=== PATIENT | male | born 1965 | race Caucasian/White ===

== ENCOUNTER 2020-03-10 16:03 | Emergency (ER) | payer BC, OTHER ==
--- NOTE | 2020-03-10 17:33 | ED ---
General Adult HPI - General Chief complaint: Shortness of Breath Stated complaint: Covid Positive Time Seen by Provider: 03/10/20 16:49 Source: patient, RN notes reviewed Mode of arrival: ambulatory Limitations: no limitations - History of Present Illness Initial comments: 55-year-old male presents to the emergency room for a chief complaint of positive Covid test. Patient reports that he did have a fever last night. States he again had a fever today with a T-max of 102. Patient did take Motrin and Tylenol. Patient does have a mild cough. Minimal shortness of breath. No significant chest pain. Patient states that because of his fever his work wanted him to be rapid tested. Patient went to urgent care and had a chest x- ray done that showed Covid pneumonia as well as a positive rapid Covid. Urgent care wanted him to be evaluated.Patient has no other complaints at this time including shortness of breath, chest pain, abdominal pain, nausea or vomiting, headache, or visual changes. - Related Data Home Medications Medication Instructions Recorded Confirmed Naproxen [Naprosyn] 375 mg PO Q12HR 09/27/14 09/28/14 Vitamin D3(Dose Unknown) 1 tab PO DAILY 09/27/14 09/28/14 hydroCHLOROthiazide [Hydrodiuril] 25 mg PO DAILY 09/27/14 09/28/14 Fexofenadine/Pseudoephedrine 1 each PO DAILY 09/28/14 09/28/14 [Cheryle-D 24 Hour Tablet] Allergies Allergy/AdvReac Type Severity Reaction Status Date / Time No Known Allergies Allergy Verified 03/10/20 16:18 Review of Systems ROS Statement: Those systems with pertinent positive or pertinent negative responses have been documented in the HPI. ROS Other: All systems not noted in ROS Statement are negative. Past Medical History Past Medical History: Hyperlipidemia History of Any Multi-Drug Resistant Organisms: None Reported Past Surgical History: Hernia Repair, Orthopedic Surgery, Tonsillectomy Additional Past Surgical History / Comment(s): left knee surgery Past Anesthesia/Blood Transfusion Reactions: No Reported Reaction Past Psychological History: No Psychological Hx Reported Smoking Status: Never smoker Past Alcohol Use History: Occasional Past Drug Use History: None Reported - Past Family History Father Family Medical History: Cancer General Exam Limitations: no limitations General appearance: alert, in no apparent distress Head exam: Present: atraumatic, normocephalic, normal inspection Eye exam: Present: normal appearance, PERRL, EOMI. Absent: scleral icterus, conjunctival injection, periorbital swelling ENT exam: Present: normal exam, mucous membranes moist Neck exam: Present: normal inspection, full ROM. Absent: tenderness, meningismus, lymphadenopathy Respiratory exam: Present: normal lung sounds bilaterally. Absent: respiratory distress, wheezes, rhonchi, stridor Cardiovascular Exam: Present: regular rate, normal rhythm, normal heart sounds. Absent: systolic murmur, diastolic murmur, rubs, gallop, clicks GI/Abdominal exam: Present: soft, normal bowel sounds. Absent: distended, tenderness, guarding, rebound, rigid Neurological exam: Present: alert Course Vital Signs 03/10/20 03/10/20 16:14 17:04 Temperature 98.8 F Pulse Rate 72 Respiratory 18 20 Rate Blood Pressure 145/87 O2 Sat by Pulse 98 Oximetry EKG Findings - EKG Comments: EKG Findings:: Normal sinus rhythm, ventricular rate 78, LA interval 146, QTC 449 Medical Decision Making - Medical Decision Making Vitals are stable. Patient is 95-98% on room air. He is not in any respiratory distress. Denies feeling short of breath. EKG is unremarkable, normal sinus rhythm. CBC unremarkable. CMP shows minimal hypokalemia, replaced orally. Patient does have a CRP of 85.9 which is consistent with Covid. Chest x-ray shows a normal chest. At this time given that good oxygen saturation and well- appearing male patient will be discharged home. However I did discuss strict return parameters. Patient is agreeable to returning if he starts to feel short of breath or has any other worsening symptoms. He will otherwise follow up with his doctor. I discussed quarantine precautions. - Lab Data Result diagrams: 03/10/20 17:25 03/10/20 17:25 Lab Results 03/10/20 03/10/20 03/10/20 Range/Units 17:25 17:25 17:25 WBC 5.5 (3.8-10.6) k/uL RBC 4.54 (4.30-5.90) m/uL Hgb 12.8 L (13.0-17.5) gm/dL Hct 38.9 L (39.0-53.0) % MCV 85.8 (80.0-100.0) fL MCH 28.2 (25.0-35.0) pg MCHC 32.9 (31.0-37.0) g/dL RDW 14.1 (11.5-15.5) % Plt Count 195 (150-450) k/uL Neutrophils % 59 % Lymphocytes % 30 % Monocytes % 8 % Eosinophils % 0 % Basophils % 0 % Neutrophils # 3.3 (1.3-7.7) k/uL Lymphocytes # 1.7 (1.0-4.8) k/uL Monocytes # 0.4 (0-1.0) k/uL Eosinophils # 0.0 (0-0.7) k/uL Basophils # 0.0 (0-0.2) k/uL PT 9.9 (9.0-12.0) sec INR 0.9 (<1.2) APTT 27.3 (22.0-30.0) sec Sodium 132 L (137-145) mmol/L Potassium 3.2 L (3.5-5.1) mmol/L Chloride 95 L (98-107) mmol/L Carbon Dioxide 27 (22-30) mmol/L Anion Gap 10 mmol/L BUN 17 (9-20) mg/dL Creatinine 1.01 (0.66-1.25) mg/dL Est GFR (CKD-EPI)AfAm >90 (>60 ml/min/1.73 sqM) Est GFR (CKD-EPI)NonAf 85 (>60 ml/min/1.73 sqM) Glucose 121 H (74-99) mg/dL Plasma Lactic Acid Rhett (0.7-2.0) mmol/L Calcium 8.4 (8.4-10.2) mg/dL Magnesium 1.7 (1.6-2.3) mg/dL Total Bilirubin 0.8 (0.2-1.3) mg/dL AST 42 (17-59) U/L ALT 34 (4-49) U/L Alkaline Phosphatase 66 (38-126) U/L Lactate Dehydrogenase 625 H (313-618) U/L C-Reactive Protein 85.9 H (<10.0) mg/L Total Protein 6.8 (6.3-8.2) g/dL Albumin 4.0 (3.5-5.0) g/dL 10/01/20 Range/Units 17:25 WBC (3.8-10.6) k/uL RBC (4.30-5.90) m/uL Hgb (13.0-17.5) gm/dL Hct (39.0-53.0) % MCV (80.0-100.0) fL MCH (25.0-35.0) pg MCHC (31.0-37.0) g/dL RDW (11.5-15.5) % Plt Count (150-450) k/uL Neutrophils % % Lymphocytes % % Monocytes % % Eosinophils % % Basophils % % Neutrophils # (1.3-7.7) k/uL Lymphocytes # (1.0-4.8) k/uL Monocytes # (0-1.0) k/uL Eosinophils # (0-0.7) k/uL Basophils # (0-0.2) k/uL PT (9.0-12.0) sec INR (<1.2) APTT (22.0-30.0) sec Sodium (137-145) mmol/L Potassium (3.5-5.1) mmol/L Chloride (98-107) mmol/L Carbon Dioxide (22-30) mmol/L Anion Gap mmol/L BUN (9-20) mg/dL Creatinine (0.66-1.25) mg/dL Est GFR (CKD-EPI)AfAm (>60 ml/min/1.73 sqM) Est GFR (CKD-EPI)NonAf (>60 ml/min/1.73 sqM) Glucose (74-99) mg/dL Plasma Lactic Acid Rhett 1.4 (0.7-2.0) mmol/L Calcium (8.4-10.2) mg/dL Magnesium (1.6-2.3) mg/dL Total Bilirubin (0.2-1.3) mg/dL AST (17-59) U/L ALT (4-49) U/L Alkaline Phosphatase (38-126) U/L Lactate Dehydrogenase (313-618) U/L C-Reactive Protein (<10.0) mg/L Total Protein (6.3-8.2) g/dL Albumin (3.5-5.0) g/dL Disposition Clinical Impression: Suspected COVID-19 virus infection Disposition: HOME SELF-CARE Condition: Good Instructions (If sedation given, give patient instructions): Dyspnea (ED), Upper Respiratory Infection (ED) Additional Instructions: Please follow-up with your primary care provider in one to 2 days. Please quarantine for at least 2 weeks. Return to the emergency room if you have any worsening symptoms. Is patient prescribed a controlled substance at d/c from ED?: No Referrals: Facundo Brice DO [Primary Care Provider] - 1-2 days Time of Disposition: 18:36
[2020-03-10 17:41] LABS: Basophils % (A) 0 %; Eosinophils % (A) 0 %; HCT 38.9 % (39.0-53.0); HGB 12.8 gm/dL (13.0-17.5); Lymphocytes # (A) 1.7 k/uL (1.0-4.8); Lymphocytes % (A) 30 %; MCH 28.2 pg (25.0-35.0); MCHC 32.9 g/dL (31.0-37.0); MCV 85.8 fL (80.0-100.0); Mean Platelet Volume 7.3; Monocytes # (A) 0.4 k/uL (0-1.0); Monocytes % (A) 8 %; Neutrophils # (A) 3.3 k/uL (1.3-7.7); Neutrophils % (A) 59 %; Platelet Count 195 k/uL (150-450); RBC 4.54 m/uL (4.30-5.90); RDW 14.1 % (11.5-15.5); WBC 5.5 k/uL (3.8-10.6)
[2020-03-10 17:54] LABS: INR 0.9 (<1.2); Partial Thromboplastin Time 27.3 sec (22.0-30.0); Prothrombin Time 9.9 sec (9.0-12.0)
--- NOTE | 2020-03-10 17:58 | XR ---
EXAMINATION TYPE: XR chest 1V portable DATE OF EXAM: 03/10/2020 COMPARISON: NONE HISTORY: Pneumonia TECHNIQUE: 2 views FINDINGS: Heart and mediastinum are normal. Lungs are clear. Diaphragm is normal. Bony thorax is inta ct. Pulmonary vascularity is normal. IMPRESSION: Normal chest.
[2020-03-10 18:02] LABS: ALT 34 U/L (4-49); AST 42 U/L (17-59); African American GFR (CKD) >90 (>60 ml/min/1.73 sqM); Alkaline Phosphatase 66 U/L (38-126); Anion Gap 10 mmol/L; Blood Urea Nitrogen 17 mg/dL (9-20); C Reactive Protein 85.9 mg/L (<10.0); Calcium 8.4 mg/dL (8.4-10.2); Carbon Dioxide 27 mmol/L (22-30); Chloride 95 mmol/L (98-107); Glucose 121 mg/dL (74-99); LDH 625 U/L (313-618); Magnesium 1.7 mg/dL (1.6-2.3); Non-African American GFR(CKD) 85 (>60 ml/min/1.73 sqM); Potassium 3.2 mmol/L (3.5-5.1); Sodium 132 mmol/L (137-145); Total Bilirubin 0.8 mg/dL (0.2-1.3); Total Protein 6.8 g/dL (6.3-8.2)
[2020-03-10] MEDS ORDERED: POTASSIUM CHLORIDE ER 20 MEQ TAB.ER PO STA (18:34)
[2020-03-10 18:55] VITALS: BP 152/87; PULSE 74; RESP 18; TEMP 97.9
== END 2020-03-10 18:59 | disposition home or self-care (01) ==
LOC: EC 16:03
DX: R50.9 Fever, unspecified (principal); E87.6 Hypokalemia; R05 Cough; R06.02 Shortness of breath; Z20.828 Contact with and (suspected) exposure to other viral communicable diseases
CPT/HCPCS: 36415; 71045; 80053; 82728; 83605; 83615; 83735; 84145; 85025; 85610; 85730; 86140; 93005; 99285

== ENCOUNTER 2020-03-13 14:59 | Inpatient (IN) | payer BC ==
[2020-03-13] MEDS ORDERED: ALBUTEROL HFA INHALER INHALATION PRN (15:20)
--- NOTE | 2020-03-13 15:50 | ED ---
SOB HPI - General Chief Complaint: Shortness of Breath Stated Complaint: covid +/ ZEFERINO Time Seen by Provider: 03/13/20 15:05 Source: patient Mode of arrival: ambulatory Limitations: no limitations - History of Present Illness Initial Comments: 55-year-old male with past medical history of diabetes presents emergency Department with reported shortness of breath. Patient was diagnosed with covid on . He began having symptoms on Saturday night. He called his work who recommended that he get tested for Covid. He went to an urgent care on Sat where they did a rapid testing was positive. He then followed up and had another test on Saturday which was not a rapid test. This one also confirmed this diagnosis. Reports that he has gotten more short of breath. Denies history of asthma or COPD. No current tobacco use. Had continued fevers. Has been alternating taking antipyretics every 4 hours. Denies productive cough. No known sick contacts with similar symptoms. Denies any chest pain. No lower extremity edema. No other alleviating, Percepting or modifying factors - Related Data Home Medications Medication Instructions Recorded Confirmed Acetaminophen [Tylenol 8 Hour] 1,300 mg PO Q4H PRN 03/13/20 03/13/20 Atorvastatin [Lipitor] 10 mg PO HS 03/13/20 03/13/20 Benzonatate [Tessalon Perles] 100 mg PO TID 03/13/20 03/13/20 Cholecalciferol [Vitamin D3 (25 1,000 unit PO DAILY 03/13/20 03/13/20 Mcg = 1000 Iu)] Guaifen/Phenyleph/Acetaminophn 1 tab PO Q4H PRN 03/13/20 03/13/20 [Mucinex Sinus-Max Severe Cplt] Ibuprofen [Motrin Ib] 400 mg PO Q4H PRN 03/13/20 03/13/20 hydroCHLOROthiazide 50 mg PO DAILY 03/13/20 03/13/20 metFORMIN HCL 850 mg PO BID 03/13/20 03/13/20 Allergies Allergy/AdvReac Type Severity Reaction Status Date / Time No Known Allergies Allergy Verified 03/13/20 18:20 Review of Systems ROS Statement: Those systems with pertinent positive or pertinent negative responses have been documented in the HPI. ROS Other: All systems not noted in ROS Statement are negative. Past Medical History Past Medical History: Hyperlipidemia History of Any Multi-Drug Resistant Organisms: None Reported Past Surgical History: Hernia Repair, Orthopedic Surgery, Tonsillectomy Additional Past Surgical History / Comment(s): left knee surgery Past Anesthesia/Blood Transfusion Reactions: No Reported Reaction Past Psychological History: No Psychological Hx Reported Smoking Status: Never smoker Past Alcohol Use History: Occasional Past Drug Use History: None Reported - Past Family History Father Family Medical History: Cancer General Exam Limitations: no limitations General appearance: alert, in no apparent distress Head exam: Present: atraumatic, normocephalic, normal inspection Eye exam: Present: normal appearance, PERRL, EOMI. Absent: scleral icterus, conjunctival injection, periorbital swelling ENT exam: Present: normal exam, mucous membranes moist Neck exam: Present: normal inspection. Absent: tenderness, meningismus, lymphadenopathy Respiratory exam: Present: wheezes, other (tachpyneic). Absent: respiratory distress, rales, rhonchi, stridor, accessory muscle use Cardiovascular Exam: Present: regular rate, normal rhythm, normal heart sounds. Absent: systolic murmur, diastolic murmur, rubs, gallop, clicks GI/Abdominal exam: Present: soft, normal bowel sounds. Absent: distended, tenderness, guarding, rebound, rigid Extremities exam: Present: normal inspection, full ROM, normal capillary refill. Absent: tenderness, pedal edema, joint swelling, calf tenderness Back exam: Present: normal inspection Neurological exam: Present: alert, oriented X3, CN II-XII intact Psychiatric exam: Present: normal affect, normal mood Skin exam: Present: warm, dry, intact, normal color. Absent: rash Course Vital Signs 03/13/20 03/13/20 15:05 16:37 Temperature 98.8 F 98.1 F Pulse Rate 18 L 89 Respiratory 20 18 Rate Blood Pressure 114/64 121/71 O2 Sat by Pulse 88 L 93 L Oximetry Medical Decision Making - Medical Decision Making Upon arrival patient is placed in room 5. A thorough history and physical exam was performed. Patient is saturating 88% on room air. He is placed on 2 L nasal cannula. Laboratory studies were conducted chest x-ray was performed. La b studies are remarkable for a d-dimer of 0.86. Potassium is 3. This is replaced. Elevated ferritin of 1077. LDH is 1087. Calcitonin 0.7. Chest x-ray is performed which demonstrates mild bilateral perihilar interstitial pneumonia. This is new compared to the patient's last chest x-ray. CTA was performed which demonstrates no signs of PE. I did discuss this with the patient. Recommended hospital admission for which patient did agree to. Discussed the case with Dr. Knight who accepted admission. Patient was then taken to the floor in stable condition - Lab Data Result diagrams: 03/16/20 05:59 03/16/20 05:59 Lab Results 03/13/20 03/13/20 03/13/20 Range/Units 15:42 15:42 15:42 WBC 5.0 (3.8-10.6) k/uL RBC 4.73 (4.30-5.90) m/uL Hgb 13.2 (13.0-17.5) gm/dL Hct 40.4 (39.0-53.0) % MCV 85.5 (80.0-100.0) fL MCH 27.9 (25.0-35.0) pg MCHC 32.6 (31.0-37.0) g/dL RDW 14.1 (11.5-15.5) % Plt Count 245 (150-450) k/uL Neutrophils % 74 % Lymphocytes % 15 % Monocytes % 8 % Eosinophils % 0 % Basophils % 0 % Neutrophils # 3.7 (1.3-7.7) k/uL Lymphocytes # 0.7 L (1.0-4.8) k/uL Monocytes # 0.4 (0-1.0) k/uL Eosinophils # 0.0 (0-0.7) k/uL Basophils # 0.0 (0-0.2) k/uL PT 9.7 (9.0-12.0) sec INR 0.9 (<1.2) APTT 28.0 (22.0-30.0) sec D-Dimer 0.86 H (<0.60) mg/L FEU Sodium 134 L (137-145) mmol/L Potassium 3.0 L (3.5-5.1) mmol/L Chloride 94 L (98-107) mmol/L Carbon Dioxide 30 (22-30) mmol/L Anion Gap 10 mmol/L BUN 19 (9-20) mg/dL Creatinine 1.11 (0.66-1.25) mg/dL Est GFR (CKD-EPI)AfAm 87 (>60 ml/min/1.73 sqM) Est GFR (CKD-EPI)NonAf 76 (>60 ml/min/1.73 sqM) Glucose 133 H (74-99) mg/dL Plasma Lactic Acid Rhett (0.7-2.0) mmol/L Calcium 8.3 L (8.4-10.2) mg/dL Magnesium 1.8 (1.6-2.3) mg/dL Ferritin 1077.8 H (22.0-322.0) ng/mL Total Bilirubin 0.9 (0.2-1.3) mg/dL AST 65 H (17-59) U/L ALT 32 (4-49) U/L Alkaline Phosphatase 71 (38-126) U/L Lactate Dehydrogenase 1087 H (313-618) U/L C-Reactive Protein 242.3 H (<10.0) mg/L Total Protein 6.5 (6.3-8.2) g/dL Albumin 3.7 (3.5-5.0) g/dL Procalcitonin (0.02-0.09) ng/mL 03/13/20 03/13/20 Range/Units 15:42 15:42 WBC (3.8-10.6) k/uL RBC (4.30-5.90) m/uL Hgb (13.0-17.5) gm/dL Hct (39.0-53.0) % MCV (80.0-100.0) fL MCH (25.0-35.0) pg MCHC (31.0-37.0) g/dL RDW (11.5-15.5) % Plt Count (150-450) k/uL Neutrophils % % Lymphocytes % % Monocytes % % Eosinophils % % Basophils % % Neutrophils # (1.3-7.7) k/uL Lymphocytes # (1.0-4.8) k/uL Monocytes # (0-1.0) k/uL Eosinophils # (0-0.7) k/uL Basophils # (0-0.2) k/uL PT (9.0-12.0) sec INR (<1.2) APTT (22.0-30.0) sec D-Dimer (<0.60) mg/L FEU Sodium (137-145) mmol/L Potassium (3.5-5.1) mmol/L Chloride (98-107) mmol/L Carbon Dioxide (22-30) mmol/L Anion Gap mmol/L BUN (9-20) mg/dL Creatinine (0.66-1.25) mg/dL Est GFR (CKD-EPI)AfAm (>60 ml/min/1.73 sqM) Est GFR (CKD-EPI)NonAf (>60 ml/min/1.73 sqM) Glucose (74-99) mg/dL Plasma Lactic Acid Rhett 1.8 (0.7-2.0) mmol/L Calcium (8.4-10.2) mg/dL Magnesium (1.6-2.3) mg/dL Ferritin (22.0-322.0) ng/mL Total Bilirubin (0.2-1.3) mg/dL AST (17-59) U/L ALT (4-49) U/L Alkaline Phosphatase (38-126) U/L Lactate Dehydrogenase (313-618) U/L C-Reactive Protein (<10.0) mg/L Total Protein (6.3-8.2) g/dL Albumin (3.5-5.0) g/dL Procalcitonin 0.70 H (0.02-0.09) ng/mL - EKG Data EKG Comments: EKG demonstrates normal sinus rhythm with ventricular rate of 88. WV interval 148. QRS 98. QTC of 450. No acute ST segment elevations or depressions concerning for ischemic changes Disposition Clinical Impression: COVID-19 virus detected, Hypoxia Disposition: ADMITTED IP TO THIS HOSP Condition: Serious Is patient prescribed a controlled substance at d/c from ED?: No Decision to Admit Reason: Admit from EC Decision Date: 03/13/20 Decision Time: 17:06
[2020-03-13 15:54] LABS: Basophils % (A) 0 %; Eosinophils % (A) 0 %; HCT 40.4 % (39.0-53.0); HGB 13.2 gm/dL (13.0-17.5); Lymphocytes # (A) 0.7 k/uL (1.0-4.8); Lymphocytes % (A) 15 %; MCH 27.9 pg (25.0-35.0); MCHC 32.6 g/dL (31.0-37.0); MCV 85.5 fL (80.0-100.0); Mean Platelet Volume 7.6; Monocytes # (A) 0.4 k/uL (0-1.0); Monocytes % (A) 8 %; Neutrophils # (A) 3.7 k/uL (1.3-7.7); Neutrophils % (A) 74 %; Platelet Count 245 k/uL (150-450); RBC 4.73 m/uL (4.30-5.90); RDW 14.1 % (11.5-15.5)
[2020-03-13 16:06] LABS: Albumin 3.7 g/dL (3.5-5.0); Calcium 8.3 mg/dL (8.4-10.2); Magnesium 1.8 mg/dL (1.6-2.3); Total Bilirubin 0.9 mg/dL (0.2-1.3); Total Protein 6.5 g/dL (6.3-8.2)
[2020-03-13 16:09] LABS: INR 0.9 (<1.2); Prothrombin Time 9.7 sec (9.0-12.0)
--- NOTE | 2020-03-13 16:12 | XR ---
EXAMINATION TYPE: XR chest 1V portable DATE OF EXAM: 03/13/2020 COMPARISON: March 10, 2020 HISTORY: Pneumonia TECHNIQUE: 2 views FINDINGS: There is some mild coarse interstitial infiltrates in the perihilar regions. There is no pl eural effusion. Pulmonary vascularity is normal. Heart size is normal. IMPRESSION: There is mild bilateral perihilar interstitial pneumonia that is new compared to recent e xam.
[2020-03-13 16:19] LABS: C Reactive Protein 242.3 mg/L (<10.0)
[2020-03-13 16:32] LABS: D-Dimer 0.86 mg/L FEU (<0.60)
[2020-03-13] MEDS ORDERED: POTASSIUM CHLORIDE ER 20 MEQ TAB.ER PO STA (17:05)
[2020-03-13] MEDS ORDERED: NALOXONE 0.4 MG/ML 1 ML VIAL IV PRN (17:06)
[2020-03-13] MEDS: SODIUM CHLORIDE 0.9% 1,000 ML IV SCH (19:02)
[2020-03-13] MEDS ORDERED: HYDROcodone/APAP 5-325MG 1 EACH TAB PO PRN (19:14)
[2020-03-13] MEDS ORDERED: ALPRAZolam 0.25 MG TAB PO PRN (19:14)
[2020-03-13] MEDS ORDERED: HYDROmorphone 0.5 MG/0.5 ML SYRINGE IVP PRN (19:14)
[2020-03-13] MEDS: dexAMETHasone 2 MG TAB PO SCH (19:46)
[2020-03-13] MEDS: ZINC SULFATE 220 MG CAP PO SCH (19:46)
[2020-03-13] MEDS ORDERED: REMDESIVIR (EUA) 200 MG in SODIUM CHLORIDE 0.9% 250 ML IVPB ONE (20:00)
[2020-03-13] MEDS: ALBUTEROL HFA INHALER INHALATION SCH (20:09)
[2020-03-13] MEDS: ATORVASTATIN 10 MG TAB PO SCH (20:56)
[2020-03-13] MEDS: FAMOTIDINE 20 MG TAB PO SCH (20:56)
[2020-03-13] MEDS: ENOXAPARIN 60 MG/0.6 ML SYRINGE SQ SCH (20:56)
[2020-03-13] MEDS: BENZONATATE 100 MG CAP PO SCH (20:56)
[2020-03-13 21:01] LABS: Glucose,Whole Blood 126 mg/dL (75-99)
[2020-03-13] MEDS: INSULIN ASPART (NovoLOG) 100 UNIT/ML VIAL SQ SCH (21:03)
--- NOTE | 2020-03-13 21:13 | CT ---
EXAMINATION TYPE: CT chest angio for PE DATE OF EXAM: 03/13/2020 COMPARISON: None HISTORY: Covid. Difficulty breathing. CT DLP: 997.9 mGycm Automated exposure control for dose reduction was used. CONTRAST: Performed with IV Contrast, patient injected with 100 mL of Isovue 370. There are 3-D post processed images. There is patchy peripheral interstitial and airspace infiltrate throughout both lungs. Heart size is normal. There is no pericardial effusion. There is enlarged subcarinal lymph node that measures 3 cm. There are a few paratracheal lymph nodes measuring up to 1.5 cm. There are a few bronchial lymph nodes measuring up to 1 cm. I see no filling defects in the pulmonary arteries. There is no pneumothorax. The bony thorax is inta ct. There is gynecomastia. IMPRESSION: Peripheral patchy extensive pulmonary interstitial and airspace infiltrates. Mild mediastinal and bro nchial adenopathy. This is consistent with inflammatory disease. No evidence of pulmonary embolism.
[2020-03-13 22:36] LABS: Ferritin 1077.8 ng/mL (22.0-322.0)
[2020-03-13 23:38] LABS: Appearance,Urine Clear (Clear); Bacteria,Urine Rare /hpf; Bilirubin,Urine Negative (Negative); Blood,Urine Small (Negative); Color,Urine Yellow; Glucose,Urine (UA) Negative (Negative); Ketones,Urine 2+ (Negative); Leukocyte Esterase,Urine Negative (Negative); Nitrite,Urine Negative (Negative); Protein,Urine 1+ (Negative); RBC,Urine 1 /hpf (0-5); Urobilinogen,Urine <2.0 mg/dL (<2.0); WBC,Urine <1 /hpf (0-5)
[2020-03-13 23:45] LABS: Specific Gravity,Urine >1.050 (1.001-1.035)
--- NOTE | 2020-03-14 00:15 | P.CONS ---
History of Present Illness - Reason for Consult Consult date: 03/13/20 covid Requesting physician: Laura Knight - Chief Complaint Shortness of breath and cough x 3 days - History of Present Illness Patient is 55-year-old male with a past medical history significant for diabetes presenting to the ER with increasing shortness of breath patient symptoms started on Saturday night the patient started having some fever with chills and generalized body aches the patient did went to an urgent care with the patient did have a rapid covid test which came back positive patient subsequently came to [facility] ER to get tested however patient was noticed to have no active symptoms or respiratory distress is advised no testing and discharged home and advised to take some [id number] medication to relieve his fever patient mentioned he went to an urgent care on Saturday to get a PCR test for Covid which was reported positive this morning patient also tried having increasing shortness of breath on minimal exertion and started having a cough which has been mild to moderate intensity not bringing up any sputum denies any pleuritic chest pain with these symptoms the patient presented back to the [facility] ER with the patient was evaluated by the ER physician on arrival to the ER, the patient was afebrile, patient did have a normal white count with evidence of lymphopenia he did have elevated d-dimer, elevated LDH and the CRP patient did have elevated AST, chest x-ray did show mild bilateral perihilar interstitial pneumonia patient has been admitted to the hospital infection is considered for further management Review of Systems Positive point has been mentioned in the HPI rest of the systems are negative Past Medical History Past Medical History: Diabetes Mellitus, Hyperlipidemia Additional Past Medical History / Comment(s): type 2 diabetes History of Any Multi-Drug Resistant Organisms: None Reported Past Surgical History: Hernia Repair, Orthopedic Surgery, Tonsillectomy Additional Past Surgical History / Comment(s): left knee surgery Past Anesthesia/Blood Transfusion Reactions: No Reported Reaction Past Psychological History: No Psychological Hx Reported Smoking Status: Never smoker Past Alcohol Use History: Occasional Past Drug Use History: None Reported - Past Family History Father Family Medical History: Cancer Medications and Allergies Home Medications Medication Instructions Recorded Confirmed Type Acetaminophen [Tylenol 8 Hour] 1,300 mg PO Q4H PRN 03/13/20 03/13/20 History Atorvastatin [Lipitor] 10 mg PO HS 03/13/20 03/13/20 History Benzonatate [Tessalon Perles] 100 mg PO TID 03/13/20 03/13/20 History Cholecalciferol [Vitamin D3 (25 1,000 unit PO DAILY 03/13/20 03/13/20 History Mcg = 1000 Iu)] Guaifen/Phenyleph/Acetaminophn 1 tab PO Q4H PRN 03/13/20 03/13/20 History [Mucinex Sinus-Max Severe Cplt] Ibuprofen [Motrin Ib] 400 mg PO Q4H PRN 03/13/20 03/13/20 History hydroCHLOROthiazide 50 mg PO DAILY 03/13/20 03/13/20 History metFORMIN HCL 850 mg PO BID 03/13/20 03/13/20 History Allergies Allergy/AdvReac Type Severity Reaction Status Date / Time No Known Allergies Allergy Verified 03/13/20 18:20 Physical Exam Vitals: Vital Signs Temp Pulse Resp BP Pulse Ox 03/13/20 16:37 98.1 F 89 18 121/71 93 L 03/13/20 15:05 98.8 F 18 L 20 114/64 88 L Intake and Output 03/13/20 03/13/20 03/13/20 06:59 14:59 22:59 Other: Weight 176.901 kg GENERAL DESCRIPTION: Middle-aged male lying in bed, no distress. No tachypnea or accessory muscle of respiration use. HEENT: Shows Pallor , no scleral icterus. Oral mucous membrane is dry. No pharyngeal erythema or thrush NECK: Trachea central, no thyromegaly. LUNGS: Unlabored breathing. Decreased intensity of breath sounds. No wheeze or crackle. HEART: S1, S2, regular rate and rhythm. No loud murmur ABDOMEN: Soft, no tenderness , guarding or rigidity, no organomegaly EXTREMITIES: No edema of feet. SKIN: No rash, no masses palpable. NEUROLOGICAL: The patient is awake, alert, oriented x3, mood and affect normal. Results CBC & Chem 7: 03/13/20 15:42 03/13/20 15:42 Labs: Abnormal Lab Results - Last 24 Hours (Table) 03/13/20 03/13/20 03/13/20 Range/Units 15:42 15:42 15:42 Lymphocytes # 0.7 L (1.0-4.8) k/uL D-Dimer 0.86 H (<0.60) mg/L FEU Sodium 134 L (137-145) mmol/L Potassium 3.0 L (3.5-5.1) mmol/L Chloride 94 L (98-107) mmol/L Glucose 133 H (74-99) mg/dL Calcium 8.3 L (8.4-10.2) mg/dL AST 65 H (17-59) U/L Lactate Dehydrogenase 1087 H (313-618) U/L C-Reactive Protein 242.3 H (<10.0) mg/L Assessment and Plan Assessment: 1- patient presented to the hospital with increasing shortness of breath fever in this patient who did have a leukopenia elevated AST and LDH and CRP with evidence of bilateral perihilar infiltrate high clinical suspicious for acute Covid 19 pneumonia in this patient who did have a PCR test done on Saturday which was reported positive this morning (1) Pneumonia due to COVID-19 virus Current Visit: Yes Status: Acute Code(s): U07.1 - COVID-19; J12.89 - OTHER VIRAL PNEUMONIA SNOMED Code(s): [id number] Plan: 1- patient will be started on dexamethasone and Lovenox ,zinc 2- discussed with pharmacy because of his hypoxemia patient qualifies for Remdisivir which will be started per protocol today 3- respiratory support and droplet isolation We will follow on clinical condition and cultures to further adjust medication if needed Thank you for this consultation will follow this patient with you Time with Patient: Greater than 30
[2020-03-14] MEDS: ALBUTEROL HFA INHALER INHALATION SCH ×4 (02:02→21:28)
[2020-03-14] MEDS: ACETAMINOPHEN TAB 325 MG TAB PO PRN ×2 (03:05→17:04)
--- NOTE | 2020-03-14 03:17 | HP ---
HISTORY AND PHYSICAL DATE OF SERVICE: 03/13/2020 CHIEF COMPLAINT: Shortness of breath. HISTORY OF PRESENT ILLNESS: This 55-year-old gentleman with a past medical history of multiple medical problems including diabetes mellitus, hyperlipidemia, history of hernia repair, being followed by Dr. Brice in the outpatient setting not feeling well over the past several days. Patient initially had cough and fever. Patient went to [facility] and a COVID-19 rapid test was positive to be confirmed by definitely to PCR testing. Patient went Saturday to [facility] and was evaluated and the patient was set home, but after going home patient had increasing shortness of breath and fever and cough and the patient presented to [facility] and chest x-ray showed significant bilateral pneumonia indicating COVID pneumonia and the patient was admitted for further evaluation and treatment. There is no history of any rigors. No history of headache, loss of consciousness, or seizures at this time. The patient also had elevated inflammatory markers, LDH 1087, CRP 242. Dr. Dickerson has been consulted and the possibility of remdesivir is being considered at this time. Sodium was 134, potassium is 3. There is no history any headache, loss of consciousness, chest pain, palpitation at this time. PAST MEDICAL HISTORY: Diabetes mellitus, hyperlipidemia, history of hernia repair, history of DJD. MEDICATIONS: Home medications prior to admission include: 1. Motrin. 2. Lipitor. 3. Mucinex. 4. Cholecalciferol. 5. Benzonatate. 6. Hydrochlorothiazide. ALLERGIES: None. FAMILY HISTORY: History of cancer in the family. SOCIAL HISTORY: Previous history of smoking. Occasional alcohol intake. REVIEW OF SYSTEMS: ENT: No diminished hearing or diminished vision. CARDIOVASCULAR SYSTEM: No angina. RESPIRATORY SYSTEM: As mentioned earlier. GI: As mentioned earlier. : No dysuria. NERVOUS SYSTEM: No numbness or weakness. ALLERGY/IMMUNOLOGY: No asthma. MUSCULOSKELETAL: As mentioned earlier. HEMATOLOGY: No history of anemia. ENDOCRINE: Diabetes. CONSTITUTIONAL: As mentioned earlier. DERMATOLOGY: Negative. RHEUMATOLOGY: Negative. PSYCHIATRY: As mentioned earlier. PHYSICAL EXAMINATION: The patient is alert and oriented x3. Pulse is 89, blood pressure 121/71, respiration 18, temperature 98.2, pulse ox 88% on room air. HEENT: Conjunctivae normal. Oral mucosa moist. RESPIRATORY: Breathing efforts increased. Bilateral scattered rhonchi and crackles. ABDOMEN: Soft, obese, nontender. LEGS: No edema NERVOUS SYSTEM: Higher functions as mentioned earlier. Moves all 4 LIMBS. No focal motor or sensory deficits. LYMPHATICS: No lymphadenopathy of the neck, axillae or groin. SKIN: No ulcer, rash or bleeding. JOINTS: No active deforming arthropathy. LABS: Labs are at this time show WBC 5, hemoglobin 13.2, sodium 134, potassium 3. Glucose is 133. LDH is 1087. CRP is 242.3. Other labs are noted. ASSESSMENT: 1. Acute COVID-19 bilateral viral pneumonia with acute hypoxic respiratory failure with possible sepsis, present on admission. 2. Shortness of breath. 3. Hyponatremia. 4. Hypokalemia. 5. Increased random blood sugar with diabetes mellitus type 2. 6. Increased AST. 7. Increased LDH. 8. Increased CRP. 9. Lymphopenia. 10.Hyperlipidemia. 11.History of degenerative joint disease. 12.History of hernia repair. 13.Tonsillectomy. 14.Obesity with body mass index of 48.7. RECOMMENDATIONS AND DISCUSSION: This 55-year-old gentleman who presented with multiple complex medical issues. Will monitor the patient closely. Continue the current medications. Continue symptomatic treatment. Otherwise at this time I recommend bronchodilators. Follow closely the inflammatory markers, Lovenox, Pepcid, zinc supplementation, dexamethasone and remdesivir per Dr. Dickerson. Consult Pulmonary. Prognosis guarded because of multiple complex medical issues. Further recommendations to follow. A copy of dictation forwarded to Dr. Brice who is the primary physician. MMODL / IJN: [id number] /
[2020-03-14] MEDS: SODIUM CHLORIDE 0.9% 1,000 ML IV SCH ×2 (05:25→21:05)
[2020-03-14 06:22] LABS: Basophils % (A) 0 %; Eosinophils % (A) 0 %; HGB 11.2 gm/dL (13.0-17.5); Lymphocytes # (A) 0.7 k/uL (1.0-4.8); Lymphocytes % (A) 17 %; MCH 27.6 pg (25.0-35.0); MCV 86.3 fL (80.0-100.0); Mean Platelet Volume 7.2; Monocytes # (A) 0.3 k/uL (0-1.0); Monocytes % (A) 8 %; Neutrophils # (A) 2.9 k/uL (1.3-7.7); Neutrophils % (A) 72 %; Platelet Count 268 k/uL (150-450); RBC 4.06 m/uL (4.30-5.90); RDW 14.2 % (11.5-15.5)
[2020-03-14 07:08] LABS: Glucose,Whole Blood 146 mg/dL (75-99)
[2020-03-14] MEDS: INSULIN ASPART (NovoLOG) 100 UNIT/ML VIAL SQ SCH ×4 (07:29→21:06)
[2020-03-14] MEDS: ENOXAPARIN 60 MG/0.6 ML SYRINGE SQ SCH ×2 (07:30→23:10)
[2020-03-14] MEDS: FAMOTIDINE 20 MG TAB PO SCH ×2 (07:30→21:04)
[2020-03-14] MEDS: BENZONATATE 100 MG CAP PO SCH ×3 (07:30→21:04)
[2020-03-14] MEDS: dexAMETHasone 2 MG TAB PO SCH (07:30)
[2020-03-14] MEDS: CHOLECALCIFEROL 1,000 UNIT TAB PO SCH (07:30)
[2020-03-14] MEDS: ZINC SULFATE 220 MG CAP PO SCH (07:31)
--- NOTE | 2020-03-14 09:56 | CDI ---
Documentation Clarification Form Date: 03/14/2020 09:38:55 AM From: Nilda Solis RN CCDS Admit Date: 03/13/2020 05:08:00 PM Patient Name: Jason Nunez Visit Number: [id number] Discharge Date: ATTENTION: The Clinical Documentation Specialists (CDI) and [facility] Coding Staff appreciate your assistance in clarifying documentation. Please respond to the clarification below the line at the bottom and electronically sign. The CDI & [facility] Coding staff will review the response and follow-up if needed. Please note: Queries are made part of the Legal Health Record. If you have any questions, please contact the author of this message via ITS. Dr. Laura Knight Increased random blood sugar with diabetes Melitus type 2 documented in the H&P History/Risk Factors: 55-year-old male presents to the ED with increasing shortness of breath diagnosed with COVID. Medical history DM type 2 Clinical Indicators: 03/13 15:42 glucose level 133; 03/13 20:59 POC glucose 126; Treatment: 03/13 Novolog ACHS In order to capture the severity of Illness and necessary documentation specificity, please clarify: Hyperglycemia with DM type 2 Other, please specify Unable to Determine (Last Revision: March 2017) Hyperglycemia with DM type 2 MTDD
[2020-03-14 11:16] LABS: African American GFR (CKD) 99.1 (60.0-200.0); Albumin 3.7 g/dL (3.80-4.90); Albumin/Globulin Ratio 1.76 (1.60-3.17); Anion Gap 9.7 mmol/L (4.00-12.00); Calcium 7.9 mg/dL (8.7-10.3); Carbon Dioxide 30.3 mmol/L (21.6-31.8); Globulin 2.1 g/dL (1.6-3.3); LDL Cholesterol,Calculated 61.6 mg/dL (0.0-131.0); Magnesium 1.8 mg/dL (1.5-2.4); Non-African American GFR(CKD) 85.5 (60.0-200.0); Potassium 3.3 mmol/L (3.5-5.5); Total Bilirubin 0.5 mg/dL (0.3-1.2); Total Protein 5.8 g/dL (6.2-8.2); VLDL Calculation 26.4 mg/dL (5.00-40.00)
[2020-03-14 11:39] LABS: Glucose,Whole Blood 222 mg/dL (75-99)
--- NOTE | 2020-03-14 14:16 | XR ---
EXAMINATION TYPE: XR chest 1V portable DATE OF EXAM: 03/14/2020 COMPARISON: 03/13/2020 HISTORY: pneumonitis TECHNIQUE: Single frontal view of the chest is obtained. FINDINGS: There are diffuse patchy infiltrates bilaterally. No pleural effusion or pneumothorax. Hea rt size stable. No interstitial edema. IMPRESSION: Stable bilateral patchy infiltrate correlate for multifocal pneumonia.
--- NOTE | 2020-03-14 15:27 | P.CNPUL ---
History of Present Illness Consult date: 03/14/20 Reason for consult: hypoxemia, pneumonia History of present illness: 55-year-old male patient, obesity with a BMI of 40.7, diabetic, started having shortness of breath around 3 days prior to his hospital visit. The patient also started having fever and chills and generalized body aches and he ultimately went to an urgent care where the rapid covid testing was done and the patient checked positive. He was subsequently the patient was asked to come into the hospital and he presented to the emergency department where he was having increased cough and shortness of breath and he was admitted to the hospital for further care. Noted the patient was found to be hypoxic. Initially was placed on oxygen at 2 L per minute nasal cannula and over the past 24 hours his oxidation is been worse and is currently up to 15 L of oxygen by nasal cannula to maintain a saturation above 90%. He is still having low-grade fever with a temperature 100.8. He has no leukocytosis. Blood work essentially within normal limits. His LDH level is at 493. His CRP level is at 22. LFTs showed an AST of 81 and ALT of 38 with an alkaline phosphatase of 60. The UA is been showing +1 protein otherwise negative. The patient had a d-dimer of 0.86. The CAT scan of the chest was done and showed extensive peripheral patchy bilateral pulmonary infiltrates and airspace disease typical of gibbs Covid 19 infection. Based on a declining course, the patient was started on Decadron 6 mg orally once a day and the patient is also currently on remdesivir per protocol. He is receiving sulfate to 20 mg on a daily basis and addition to vitamin C and melatonin. He denies having any significant shortness of breath. His resting comfortably in bed. He is hemodynamically stable. No hemoptysis. No pleurisy. No sputum production. No other complaints otherwise for now. No nausea. No vomiting. No diarrhea. No headaches. Review of Systems Constitutional: Reports chills, Reports fatigue, Reports fever Eyes: denies as per HPI, denies blurred vision, denies bulging eye, denies decreased vision, denies diplopia, denies discharge, denies dry eye, denies irritation, denies itching, denies pain, denies photophobia, denies loss of peripheral vision, denies loss of vision, denies tunnel vision/blind spots Ears: deny: decreased hearing, ear discharge, earache, tinnitus Ears, nose, mouth and throat: Reports as per HPI Breasts: absent: as per HPI, gynecomastia Cardiovascular: Reports decreased exercise tolerance, Reports dyspnea on exertion Respiratory: Reports cough, Reports dyspnea Gastrointestinal: Reports as per HPI Genitourinary: Reports as per HPI Musculoskeletal: absent: ankle pain, ankle stiffness, ankle swelling Integumentary: Reports as per HPI Neurological: Reports as per HPI Psychiatric: Reports as per HPI Endocrine: Reports as per HPI Hematologic/Lymphatic: Reports as per HPI Allergic/Immunologic: Reports as per HPI Past Medical History Past Medical History: Diabetes Mellitus, Hyperlipidemia Additional Past Medical History / Comment(s): type 2 diabetes History of Any Multi-Drug Resistant Organisms: None Reported Past Surgical History: Hernia Repair, Orthopedic Surgery, Tonsillectomy Additional Past Surgical History / Comment(s): left knee surgery Past Anesthesia/Blood Transfusion Reactions: No Reported Reaction Past Psychological History: No Psychological Hx Reported Smoking Status: Never smoker Past Alcohol Use History: Occasional Past Drug Use History: None Reported - Past Family History Father Family Medical History: Cancer Medications and Allergies Home Medications Medication Instructions Recorded Confirmed Type Acetaminophen [Tylenol 8 Hour] 1,300 mg PO Q4H PRN 03/13/20 03/13/20 History Atorvastatin [Lipitor] 10 mg PO HS 03/13/20 03/13/20 History Benzonatate [Tessalon Perles] 100 mg PO TID 03/13/20 03/13/20 History Cholecalciferol [Vitamin D3 (25 1,000 unit PO DAILY 03/13/20 03/13/20 History Mcg = 1000 Iu)] Guaifen/Phenyleph/Acetaminophn 1 tab PO Q4H PRN 03/13/20 03/13/20 History [Mucinex Sinus-Max Severe Cplt] Ibuprofen [Motrin Ib] 400 mg PO Q4H PRN 03/13/20 03/13/20 History hydroCHLOROthiazide 50 mg PO DAILY 03/13/20 03/13/20 History metFORMIN HCL 850 mg PO BID 03/13/20 03/13/20 History Allergies Allergy/AdvReac Type Severity Reaction Status Date / Time No Known Allergies Allergy Verified 03/13/20 18:20 Physical Exam Vitals: Vital Signs Temp Pulse Pulse Resp BP BP Pulse Ox 03/14/20 14:42 100.1 F H 95 17 132/71 94 L 03/14/20 13:52 22 89 L 03/14/20 13:11 20 89 L 03/14/20 12:58 20 03/14/20 11:15 20 91 L 03/14/20 09:35 20 89 L 03/14/20 07:41 20 92 L 03/14/20 07:37 18 03/14/20 07:00 98.3 F 91 18 135/72 87 L 03/14/20 03:00 100.8 F H 103 H 136/69 86 L 03/13/20 19:30 99.1 F 98 136/65 92 L 03/13/20 16:37 98.1 F 89 18 121/71 93 L Intake and Output 03/14/20 03/14/20 03/14/20 06:59 14:59 22:59 Intake Total 3000 Balance 3000 Intake: Oral 3000 Other: # Voids 3 4 GENERAL DESCRIPTION: Middle-aged male lying in bed, no distress. No tachypnea or accessory muscle of respiration use. Head exam was generally normal. There was no scleral icterus or corneal arcus. Mucous membranes were moist. Neck was supple and without jugular venous distension, thyromegaly, or carotid bruits. Carotids were easily palpable bilaterally. There was no adenopathy. Mallampati class IV LUNGS: Unlabored breathing. Decreased intensity of breath sounds. No wheeze or crackle. HEART: S1, S2, regular rate and rhythm. No loud murmur ABDOMEN: Soft, no tenderness , guarding or rigidity, no organomegaly EXTREMITIES: No edema of feet. SKIN: No rash, no masses palpable. NEUROLOGICAL: The patient is awake, alert, oriented x3, mood and affect normal. Results - Laboratory Findings CBC and BMP: 03/14/20 06:00 03/14/20 06:00 PT/INR, D-dimer PT 9.7 sec (9.0-12.0) 03/13/20 15:42 INR 0.9 (<1.2) 03/13/20 15:42 D-Dimer 0.86 mg/L FEU (<0.60) H 03/13/20 15:42 Abnormal lab findings: Abnormal Labs 03/13/20 03/13/20 03/13/20 15:42 15:42 15:42 RBC Hgb Hct Lymphocytes # 0.7 L D-Dimer 0.86 H Sodium 134 L Potassium 3.0 L Chloride 94 L Glucose 133 H POC Glucose (mg/dL) Calcium 8.3 L Ferritin 1077.8 H AST 65 H Lactate Dehydrogenase 1087 H C-Reactive Protein 242.3 H Total Protein Albumin HDL Cholesterol Procalcitonin Ur Specific [place] Urine Protein Urine Ketones Urine Blood Urine Bacteria 03/13/20 03/13/20 03/13/20 15:42 20:59 23:00 RBC Hgb Hct Lymphocytes # D-Dimer Sodium Potassium Chloride Glucose POC Glucose (mg/dL) 126 H Calcium Ferritin AST Lactate Dehydrogenase C-Reactive Protein Total Protein Albumin HDL Cholesterol Procalcitonin 0.70 H Ur Specific [place] >1.050 H Urine Protein 1+ H Urine Ketones 2+ H Urine Blood Small H Urine Bacteria Rare H 03/14/20 03/14/20 03/14/20 06:00 06:00 07:06 RBC 4.06 L Hgb 11.2 L Hct 35.0 L Lymphocytes # 0.7 L D-Dimer Sodium 133 L Potassium 3.3 L Chloride 93 L Glucose 142 H POC Glucose (mg/dL) 146 H Calcium 7.9 L Ferritin AST 81 H Lactate Dehydrogenase 493 H C-Reactive Protein 22.0 H Total Protein 5.8 L Albumin 3.70 L HDL Cholesterol 22.0 L Procalcitonin Ur Specific [place] Urine Protein Urine Ketones Urine Blood Urine Bacteria 03/14/20 11:37 RBC Hgb Hct Lymphocytes # D-Dimer Sodium Potassium Chloride Glucose POC Glucose (mg/dL) 222 H Calcium Ferritin AST Lactate Dehydrogenase C-Reactive Protein Total Protein Albumin HDL Cholesterol Procalcitonin Ur Specific [place] Urine Protein Urine Ketones Urine Blood Urine Bacteria - Diagnostic Findings Chest x-ray: image reviewed CT scan - chest: image reviewed Assessment and Plan Plan: 1 acute bilateral pneumonia due to Covid 19 viral infection 2 acute hypoxic respiratory failure with progressive worsening in her oxygenation currently the patient on 15 L of oxygen by nasal cannula. 3 dyspnea secondary to above 4 obesity with a BMI of 40.7 5 hypertension 6 diabetes mellitus 7 hyperlipidemia Plan The patient was monitored very closely. Is currently on 50 L of oxygen by nasal cannula. He'll be asked to sleep in various positions including supine body position. He'll be transferred to the intensive care unit if there is any further worsening in his oxygenation. Despite his hypoxemia, he is not having any major air hunger or struggling with his breathing at least on clinical grounds. Continue the combination of Decadron, Remdesevir , Lovenox, zinc sulfate, vitamin C and melatonin and Pepcid May need to be transferred to the intensive care unit if there is any further worsening in the oxygenation Monitor fever pattern Monitor inflammatory markers We'll continue to follow
[2020-03-14 17:01] LABS: Glucose,Whole Blood 191 mg/dL (75-99)
--- NOTE | 2020-03-14 17:06 | PN ---
PROGRESS NOTE DATE OF SERVICE: 03/14/2020 This 55-year-old gentleman who was admitted with acute COVID-19 bilateral pneumonia with acute hypoxic respiratory failure is being closely monitored. The patient had some hypoxia. The patient needed 15 L high-flow oxygen for saturation at 94. The patient remains conscious. The most recent chest x-ray, which I ordered today and reviewed personally, showed evidence of persistent bilateral lesions. A chest CTA was done yesterday which ruled out the possibility of acute pulmonary embolism, but peripheral extensive pulmonary interstitial and airspace disease, and mild mediastinal and bronchial adenopathy was also noted, suggestive of COVID-[address] Dickerson was also consulted. The patient is started on remdesivir also. Past medical history reviewed. REVIEW OF SYSTEMS: CARDIOVASCULAR SYSTEM: No angina, palpitations. RESPIRATORY SYSTEM: As mentioned earlier. GI: As mentioned earlier. : No dysuria or retention. NERVOUS SYSTEM: No numbness, weakness. CURRENT MEDICATIONS: Reviewed. They include: 1. Tylenol. 2. [place]. 3. Ventolin. 4. Xanax. 5. Lipitor. 6. Tessalon. 7. Vitamin D3. 8. Hexadrol. 9. Lovenox. 10.Pepcid. 11.HydroDIURIL. 12.Dilaudid. 13.Narcan. 14.Remdesivir, second dose. 15.Orazinc. PHYSICAL EXAMINATION: Patient is alert, oriented x3. Pulse is 95, blood pressure 132/70, respiration 17, temperature 100.1, pulse ox 94% on 15 L. HEENT: Conjunctivae normal. NECK: No jugular venous distention. CARDIOVASCULAR SYSTEM: S1, S2 muffled. RESPIRATORY SYSTEM: Breath sounds diminished at the bases. Bilateral scattered rhonchi and crackles. ABDOMEN: Soft, non-tender. No mass palpable. LEGS: No edema. No swelling. NERVOUS SYSTEM: Higher functions as mentioned earlier. Moves all 4 limbs. No focal motor or sensory deficit. LYMPHATICS: No lymph node palpable in neck, axillae or groin. SKIN: No ulcer, rash, bleeding. JOINTS: No active deforming arthropathy. LABS: WBC 4, hemoglobin 11.2 sodium 133, potassium 3.3. Procalcitonin is 0.86. Other labs are noted. Albumin is 3.7. AST is 22. ASSESSMENT: 1. Acute COVID-19 bilateral viral pneumonia which is extensive, with acute hypoxic respiratory failure with possible sepsis, present on admission. 2. Shortness of breath. 3. Hyponatremia. 4. Hypokalemia. 5. Elevated procalcitonin. 6. Increased random blood sugar with diabetes mellitus, type 2. 7. Increased AST. 8. Increased LDH. 9. Increased CRP. 10.Lymphopenia. 11.Hyperlipidemia. 12.History of degenerative joint disease. 13.History of hernia repair. 14.Tonsillectomy. 15.Obesity with body mass index 48.7. RECOMMENDATIONS AND DISCUSSION: I recommend to continue current medications, continue with the monitoring, symptomatic treatment. Continue with the bronchodilators. Continue with the dexamethasone. Continue with remdesivir. Continue with high-flow oxygen. Continue the rest of the medications. I would also recommend a short course of antibiotics because of elevated procalcitonin levels and history of diabetes mellitus and obesity and other multiple complex medical issues. I would arrange to obtain blood cultures as well as a sputum culture. Guarded prognosis because of multiple complex medical issues. Further recommendations to follow. See orders for further details. Repeat labs will be ordered for tomorrow. MMODL / IJN: [id number] /
[2020-03-14] MEDS ORDERED: Potassium Replacement Protocol 1 EACH MISC MISCELLANE PRN (17:15)
[2020-03-14] MEDS ORDERED: Magnesium Replacement Protocol 1 EACH MISC MISCELLANE PRN (17:17)
[2020-03-14] MEDS: MAGNESIUM SULFATE-D5W PMX 1 GM in DEXTROSE/WATER 1 100ML.BAG IVPB SCH ×2 (17:32→21:05)
[2020-03-14] MEDS: POTASSIUM CHLORIDE ER 20 MEQ TAB.ER PO SCH ×2 (17:32→21:04)
[2020-03-14 20:45] LABS: Glucose,Whole Blood 202 mg/dL (75-99)
[2020-03-14] MEDS: ATORVASTATIN 10 MG TAB PO SCH (21:05)
[2020-03-14] MEDS: REMDESIVIR (EUA) 100 MG in SODIUM CHLORIDE 0.9% 250 ML IVPB SCH (23:10)
--- NOTE | 2020-03-15 00:57 | PN ---
PROGRESS NOTE DATE OF SERVICE: 03/14/2020 REASON FOR FOLLOWUP: Acute COVID-19 pneumonia. INTERVAL HISTORY: The patient is currently afebrile. The patient is breathing slightly comfortably. Denies having any chest pain. Minimal cough. No nausea, no vomiting. No abdominal pain, no diarrhea. PHYSICAL EXAMINATION: Blood pressure 132/71 with a pulse of 95, temperature 98. General description is a middle-aged male lying in bed in no distress. RESPIRATORY SYSTEM: Unlabored breathing with decreased intense breath sounds. No wheeze. HEART: S1, S2. Regular rate and rhythm. ABDOMEN: Soft, no tenderness. LABS: Hemoglobin 11.2, white count 4.0, BUN of 18, creatinine 1.0. DIAGNOSTIC IMPRESSION AND PLAN: Patient with acute COVID-19 pneumonia for which the patient is currently covered with remdesivir along with the dexamethasone, Lovenox and Zinc sulfate to continue and will monitor his clinical course closely. Continue with supportive care. MMODL / IJN: [id number] /
[2020-03-15] MEDS: ALBUTEROL HFA INHALER INHALATION SCH ×4 (01:34→20:29)
[2020-03-15 06:37] LABS: Basophils % (A) 0 %; Eosinophils % (A) 0 %; HCT 36.2 % (39.0-53.0); HGB 11.8 gm/dL (13.0-17.5); Lymphocytes # (A) 1.2 k/uL (1.0-4.8); Lymphocytes % (A) 17 %; MCH 29.2 pg (25.0-35.0); MCHC 32.7 g/dL (31.0-37.0); MCV 89.3 fL (80.0-100.0); Mean Platelet Volume 7.1; Monocytes # (A) 0.6 k/uL (0-1.0); Monocytes % (A) 9 %; Neutrophils # (A) 5.1 k/uL (1.3-7.7); Neutrophils % (A) 71 %; Platelet Count 340 k/uL (150-450); RBC 4.06 m/uL (4.30-5.90); RDW 14.2 % (11.5-15.5); WBC 7.2 k/uL (3.8-10.6)
[2020-03-15 07:06] LABS: Glucose,Whole Blood 174 mg/dL (75-99)
[2020-03-15] MEDS: BENZONATATE 100 MG CAP PO SCH ×3 (07:44→22:12)
[2020-03-15] MEDS: FAMOTIDINE 20 MG TAB PO SCH ×2 (07:44→22:12)
[2020-03-15] MEDS: ENOXAPARIN 60 MG/0.6 ML SYRINGE SQ SCH ×2 (07:45→22:12)
[2020-03-15] MEDS: INSULIN ASPART (NovoLOG) 100 UNIT/ML VIAL SQ SCH ×4 (07:45→22:13)
[2020-03-15] MEDS: ZINC SULFATE 220 MG CAP PO SCH (07:45)
[2020-03-15] MEDS: CHOLECALCIFEROL 1,000 UNIT TAB PO SCH (07:45)
[2020-03-15] MEDS: SODIUM CHLORIDE 0.9% 1,000 ML IV SCH (07:46)
[2020-03-15] MEDS: dexAMETHasone 2 MG TAB PO SCH (07:46)
[2020-03-15] MEDS: REMDESIVIR (EUA) 100 MG in SODIUM CHLORIDE 0.9% 250 ML IVPB SCH (09:26)
[2020-03-15 09:47] LABS: African American GFR (CKD) 118.2 (60.0-200.0); Albumin 3.9 g/dL (3.80-4.90); Albumin/Globulin Ratio 1.86 (1.60-3.17); Anion Gap 9.7 mmol/L (4.00-12.00); BUN/Creat Ratio 23.75 Ratio (12.00-20.00); Calcium 8.2 mg/dL (8.7-10.3); Carbon Dioxide 31.3 mmol/L (21.6-31.8); Globulin 2.1 g/dL (1.6-3.3); Magnesium 2.2 mg/dL (1.5-2.4); Potassium 3.9 mmol/L (3.5-5.5); Total Bilirubin 0.5 mg/dL (0.3-1.2)
[2020-03-15 11:13] LABS: Glucose,Whole Blood 178 mg/dL (75-99)
--- NOTE | 2020-03-15 12:03 | P.PN ---
Subjective Progress Note Date: 03/15/20 Principal diagnosis: COVID 19 viral pneumonia 55-year-old male patient, obesity with a BMI of 40.7, diabetic, started having shortness of breath around 3 days prior to his hospital visit. The patient also started having fever and chills and generalized body aches and he ultimately went to an urgent care where the rapid covid testing was done and the patient checked positive. He was subsequently the patient was asked to come into the hospital and he presented to the emergency department where he was having increased cough and shortness of breath and he was admitted to the hospital for further care. Noted the patient was found to be hypoxic. Initially was placed on oxygen at 2 L per minute nasal cannula and over the past 24 hours his oxidation is been worse and is currently up to 15 L of oxygen by nasal cannula to maintain a saturation above 90%. He is still having low-grade fever with a temperature 100.8. He has no leukocytosis. Blood work essentially within normal limits. His LDH level is at 493. His CRP level is at 22. LFTs showed an AST of 81 and ALT of 38 with an alkaline phosphatase of 60. The UA is been showing +1 protein otherwise negative. The patient had a d-dimer of 0.86. The CAT scan of the chest was done and showed extensive peripheral patchy bilateral pulmonary infiltrates and airspace disease typical of gibbs Covid 19 infection. Based on a declining course, the patient was started on Decadron 6 mg orally once a day and the patient is also currently on remdesivir per protocol. He is receiving sulfate to 20 mg on a daily basis and addition to vitamin C and melatonin. He denies having any significant shortness of breath. His resting comfortably in bed. He is hemodynamically stable. No hemoptysis. No pleurisy. No sputum production. No other complaints otherwise for now. No nausea. No vomiting. No diarrhea. No headaches. On 03/15/2020 patient seen in follow-up on medical surgical floor, he is currently in 15 minutes of oxygen, his pulse ox is 95%, patient is self pronating in bed, he is currently living in his abdomen, tolerating it well, no worsening dyspnea, no significant cough, no chest pain, is awake and alert, oriented 3, does get short of breath with exertion, his been afebrile. Remains on empiric antibiotics, currently on IV Rocephin, he is receiving Remdesivir, he is on day 3 of treatment, he is on Lovenox 60 mg every 12 hours, Pepcid, and zinc supplementation. Denies any chest pain, no hemoptysis, no nausea vomiting or diarrhea. No headaches. No new chest x-ray today. LDH is 598, up slightly from 493 on yesterday's labs, but overall trending down since admission, CRP is trending down to 11, pro-calcitonin came back at 0.70, blood cultures have been negative, patient is covered with Rocephin for empiric antibody coverage. Objective - Vital Signs Vital signs: Vital Signs Temp 98.7 F 03/15/20 07:00 Pulse 86 03/15/20 07:00 Resp 19 03/15/20 07:20 BP 116/67 03/15/20 07:00 Pulse Ox 93 L 03/15/20 08:12 Intake & Output 03/14/20 03/15/20 03/15/20 18:59 06:59 18:59 Intake Total 600 Balance 600 Intake: Oral 600 Other: Voiding Method Toilet Urinal # Voids 4 - Exam GENERAL EXAM: Alert, very pleasant, 55-year-old, white male, on 15 L of oxygen, currently laying on his abdomen, soft morning, with pulse ox of 93-97% comfortable in no apparent distress. HEAD: Normocephalic/atraumatic. EYES: Normal reaction of pupils, equal size. Conjunctiva pink, sclera white. NOSE: Clear with pink turbinates. THROAT: No erythema or exudates. NECK: No masses, no JVD, no thyroid enlargement, no adenopathy. CHEST: No chest wall deformity. Symmetrical expansion. LUNGS: Equal air entry with no crackles, wheeze, rhonchi or dullness. CVS: Regular rate and rhythm, normal S1 and S2, no gallops, no murmurs, no rubs ABDOMEN: Soft, nontender. No hepatosplenomegaly, normal bowel sounds, no guarding or rigidity. EXTREMITIES: No clubbing, no edema, no cyanosis, 2+ pulses and upper and lower extremities. MUSCULOSKELETAL: Muscle strength and tone normal. SPINE: No scoliosis or deformity SKIN: No rashes CENTRAL NERVOUS SYSTEM: Alert and oriented -3. No focal deficits, tone is normal in all 4 extremities. PSYCHIATRIC: Alert and oriented -3. Appropriate affect. Intact judgment and insight. - Labs CBC & Chem 7: 03/15/20 06:09 03/15/20 06:09 Labs: Abnormal Lab Results - Last 24 Hours (Table) 03/14/20 03/14/20 03/15/20 Range/Units 16:56 20:43 06:09 RBC 4.06 L (4.30-5.90) m/uL Hgb 11.8 L (13.0-17.5) gm/dL Hct 36.2 L (39.0-53.0) % Chloride (96-109) mmol/L BUN/Creatinine Ratio (12.00-20.00) Ratio Glucose (70-110) mg/dL POC Glucose (mg/dL) 191 H 202 H (75-99) mg/dL Calcium (8.7-10.3) mg/dL AST (14-35) U/L Lactate Dehydrogenase (120-246) U/L C-Reactive Protein (0.0-0.8) mg/dL Total Protein (6.2-8.2) g/dL 03/15/20 03/15/20 03/15/20 Range/Units 06:09 07:04 11:12 RBC (4.30-5.90) m/uL Hgb (13.0-17.5) gm/dL Hct (39.0-53.0) % Chloride 95 L (96-109) mmol/L BUN/Creatinine Ratio 23.75 H (12.00-20.00) Ratio Glucose 168 H (70-110) mg/dL POC Glucose (mg/dL) 174 H 178 H (75-99) mg/dL Calcium 8.2 L (8.7-10.3) mg/dL AST 80 H (14-35) U/L Lactate Dehydrogenase 598 H (120-246) U/L C-Reactive Protein 11.0 H (0.0-0.8) mg/dL Total Protein 6.0 L (6.2-8.2) g/dL Microbiology - Last 24 Hours (Table) 03/13/20 15:42 Blood Culture - Preliminary Blood No Growth after 24 hours Assessment and Plan Plan: Assessment: 1 acute bilateral pneumonia due to Covid 19 viral infection 2 acute hypoxic respiratory failure with progressive worsening in her oxygenation currently the patient on 15 L of oxygen by nasal cannula. 3 dyspnea secondary to above 4 obesity with a BMI of 40.7 5 hypertension 6 diabetes mellitus 7 hyperlipidemia Plan: Continue current medical treatment, continue encouraging patient to self-prone, which the patient is doing, tolerating it well, breathing appears to be comfortable, patient does have exertional dyspnea, afebrile. Continues on Remdesivir, prophylactic dose of Lovenox, Pepcid, zinc supplement, and empiric antibiotics. Blood cultures have shown no growth. We'll continue to follow I performed a history & physical examination of the patient and discussed their management with my nurse practitioner, Isela Hill. I reviewed the nurse practitioner's note and agree with the documented findings and plan of care. Lung sounds are positive for diminished breath sounds. The findings and the impression was discussed with the patient. I attest to the documentation by the nurse practitioner. Time with Patient: Less than 30
[2020-03-15 16:05] LABS: Hemoglobin A1C 7.5 % (4.0-6.0)
[2020-03-15 16:34] LABS: Glucose,Whole Blood 166 mg/dL (75-99)
--- NOTE | 2020-03-15 17:28 | PN ---
PROGRESS NOTE DATE OF SERVICE: 03/15/2020 REASON FOR FOLLOWUP: Acute COVID-19 pneumonia. INTERVAL HISTORY: The patient is currently afebrile. The patient is breathing slightly comfortably. Still requiring high-flow oxygen. Denies having any chest pain. No worsening cough. No nausea, no vomiting. No abdominal pain, no diarrhea. PHYSICAL EXAMINATION: Blood pressure 106/57, pulse of 85, temperature 97.9. He is 91% on 15 L high-flow oxygen. General description is a middle-aged male, lying in bed in no distress. RESPIRATORY SYSTEM: Unlabored breathing, decreased breath sounds, no wheeze. HEART: S1, S2. Regular rate and rhythm. ABDOMEN: Soft, no tenderness. LABS: Hemoglobin 9.1, white count 7.2, BUN of 19, creatinine 0.8. AST is 80 and LDH is down to 598, slightly up. DIAGNOSTIC IMPRESSION AND PLAN: Patient with acute COVID-19 pneumonia, requiring high-flow oxygen. The patient at this time to continue with dexamethasone, Lovenox and will monitor clinical course closely. Continue supportive care. MMODL / IJN: [id number] /
[2020-03-15 21:20] LABS: Glucose,Whole Blood 155 mg/dL (75-99)
[2020-03-15] MEDS: ATORVASTATIN 10 MG TAB PO SCH (22:12)
[2020-03-16] MEDS: SODIUM CHLORIDE 0.9% 1,000 ML IV SCH ×2 (01:20→17:19)
[2020-03-16] MEDS: ALBUTEROL HFA INHALER INHALATION SCH ×4 (02:51→19:34)
[2020-03-16 06:16] LABS: HCT 36.3 % (39.0-53.0); HGB 11.6 gm/dL (13.0-17.5); MCH 28.3 pg (25.0-35.0); MCHC 32.1 g/dL (31.0-37.0); MCV 88.2 fL (80.0-100.0); Mean Platelet Volume 6.9; Platelet Count 398 k/uL (150-450); RBC 4.12 m/uL (4.30-5.90); RDW 14.4 % (11.5-15.5); WBC 6.6 k/uL (3.8-10.6)
[2020-03-16 06:50] LABS: Lymphocytes # (M) 1.72 k/uL (1.0-4.8); Monocytes # (M) 0.33 k/uL (0-1.0); Neutrophils # (M) 4.55 k/uL (1.3-7.7); Neutrophils % (M) 69 %; Nucleated Red Blood Cells 0 /100 WBC (0-0); Total Cells Counted 100
[2020-03-16 07:21] LABS: Glucose,Whole Blood 140 mg/dL (75-99)
[2020-03-16] MEDS: ENOXAPARIN 60 MG/0.6 ML SYRINGE SQ SCH ×2 (07:59→22:15)
[2020-03-16] MEDS: FAMOTIDINE 20 MG TAB PO SCH ×2 (08:00→22:16)
[2020-03-16] MEDS: ZINC SULFATE 220 MG CAP PO SCH (08:00)
[2020-03-16] MEDS: dexAMETHasone 2 MG TAB PO SCH (08:00)
[2020-03-16] MEDS: BENZONATATE 100 MG CAP PO SCH ×3 (08:01→22:16)
[2020-03-16] MEDS: INSULIN ASPART (NovoLOG) 100 UNIT/ML VIAL SQ SCH ×4 (08:01→22:16)
[2020-03-16] MEDS: CHOLECALCIFEROL 1,000 UNIT TAB PO SCH (08:01)
[2020-03-16 09:42] LABS: African American GFR (CKD) 124.9 (60.0-200.0); Albumin 3.8 g/dL (3.80-4.90); Albumin/Globulin Ratio 1.73 (1.60-3.17); Anion Gap 12.1 mmol/L (4.00-12.00); BUN/Creat Ratio 31.43 Ratio (12.00-20.00); C Reactive Protein 6.2 mg/dL (0.0-0.8); Calcium 8.4 mg/dL (8.7-10.3); Carbon Dioxide 28.9 mmol/L (21.6-31.8); Globulin 2.2 g/dL (1.6-3.3); Magnesium 2.1 mg/dL (1.5-2.4); Non-African American GFR(CKD) 107.7 (60.0-200.0); Potassium 3.6 mmol/L (3.5-5.5); Total Bilirubin 0.5 mg/dL (0.3-1.2)
[2020-03-16] MEDS: REMDESIVIR (EUA) 100 MG in SODIUM CHLORIDE 0.9% 250 ML IVPB SCH (09:56)
--- NOTE | 2020-03-16 10:47 | P.PN ---
Subjective This is a pleasant 55 years old male with past medical history of diabetes mellitus type 2 and hyperlipidemia. Presents with respiratory signs and symptoms and found to have bilateral pneumonia secondary to covert, patient also have worsening respiratory function yesterday and his oxygen requirements went up from 5 L TO 15 L/m of oxygen via high flow nasal cannula. Patient today was seen in the prone position, he feels a little better and more stable compared to yesterday. He still have coughing and is still taking anti-tussive medication. He had a fever yesterday of 100.1. CBC looks stable today. Glucose controlled. Inflammatory markers including lactate dehydrogenase and C-reactive protein and ferritin were elevated. D-dimer was mildly elevated at 0.86. Patient is currently covered with therapeutic doses of Lovenox 60 mg twice a day. Also he is on ceftriaxone, remdesvir and normal saline at 75 mL/h. Pulmonary and infectious disease on the case and their input is appreciated. Review of systems CONSTITUTIONAL: No fever, no malaise, no fatigue. HEENT: No recent visual problems or hearing problems. Denied any sore throat. CARDIOVASCULAR: No orthopnea, PND, no palpitations, no syncope. PULMONARY: No chest wall tenderness, no hemoptysis. GASTROINTESTINAL: No diarrhea, no nausea, no vomiting, no abdominal pain. Nor moactive bowel sounds. NEUROLOGICAL: No headaches, no weakness, no numbness. Active Medications Generic Name Dose Route Start Last Admin Trade Name Freq PRN Reason Stop Dose Admin Acetaminophen 650 mg 03/13/20 19:09 03/14/20 17:04 Acetaminophen Tab 325 Mg Tab PO 650 mg Q4H PRN Administration Fever and/ or Pain Hydrocodone Bitart/Acetaminophen 1 each 03/13/20 19:14 Hydrocodone/Apap 5-325mg 1 Each Tab PO Q6HR PRN Pain Albuterol Sulfate 2 puff 03/13/20 20:00 03/15/20 08:08 Albuterol Hfa Inhaler INHALATION 2 puff RT-Q6H MARIBEL Administration Alprazolam 0.25 mg 03/13/20 19:14 Alprazolam 0.25 Mg Tab PO TID PRN Anxiety Atorvastatin Calcium 10 mg 03/13/20 21:00 03/14/20 21:05 Atorvastatin 10 Mg Tab PO 10 mg HS MARIBEL Administration Benzonatate 100 mg 03/13/20 22:00 03/15/20 07:44 Benzonatate 100 Mg Cap PO 100 mg TID MARIBEL Administration Cholecalciferol 1,000 unit 03/14/20 09:00 03/15/20 07:45 Cholecalciferol 1,000 Unit Tab PO 1,000 unit DAILY MARIBEL Administration Dexamethasone 6 mg 03/13/20 19:15 03/15/20 07:46 Dexamethasone 2 Mg Tab PO 6 mg DAILY MARIBEL Administration Enoxaparin Sodium 60 mg 03/13/20 21:00 03/15/20 07:45 Enoxaparin 60 Mg/0.6 Ml Syringe SQ 60 mg Q12HR MARIBEL Administration Famotidine 20 mg 03/13/20 21:00 03/15/20 07:44 Famotidine 20 Mg Tab PO 20 mg BID MARIBEL Administration Hydrochlorothiazide 50 mg 03/14/20 09:00 03/15/20 07:46 Hydrochlorothiazide 50 Mg Tab PO 50 mg DAILY MARIBEL Administration Hydromorphone HCl 0.5 mg 03/13/20 19:14 Hydromorphone 0.5 Mg/0.5 Ml Syringe IVP Q4HR PRN Severe Pain Sodium Chloride 1,000 mls @ 75 mls/hr 03/13/20 17:15 03/15/20 07:46 Saline 0.9% IV 75 mls/hr .[id number] MARIBEL Administration Remdesivir 100 mg/ Sodium 250 mls @ 250 mls/hr 03/14/20 20:00 03/15/20 09:26 Chloride IVPB 03/17/20 09:59 250 mls/hr DAILY MARIBEL Administration Ceftriaxone Sodium 1 gm/ 50 mls @ 100 mls/hr 03/14/20 15:00 03/15/20 07:44 Sodium Chloride IVPB 100 mls/hr Q24HR MARIBEL Administration Insulin Aspart 0 unit 03/13/20 21:00 03/15/20 07:45 Insulin Aspart (Novolog) 100 Unit/Ml Vial SQ 4 unit ACHS MARIBEL Administration Protocol Miscellaneous Information 1 each 03/14/20 17:15 Potassium Replacement Protocol 1 Each Misc MISCELLANE DAILY PRN Per Protocol Protocol Miscellaneous Information 1 each 03/14/20 17:17 Magnesium Replacement Protocol 1 Each Misc MISCELLANE DAILY PRN Per Protocol Protocol Naloxone HCl 0.2 mg 03/13/20 17:06 Naloxone 0.4 Mg/Ml 1 Ml Vial IV Q2M PRN Opioid Reversal Zinc Sulfate 220 mg 03/13/20 19:15 03/15/20 07:45 Zinc Sulfate 220 Mg Cap PO 220 mg DAILY MARIBEL Administration Objective - Vital Signs Vital signs: Vital Signs Temp 98.7 F 03/15/20 07:00 Pulse 86 03/15/20 07:00 Resp 19 03/15/20 07:00 BP 116/67 03/15/20 07:00 Pulse Ox 93 L 03/15/20 08:12 Intake & Output 03/14/20 03/15/20 03/15/20 18:59 06:59 18:59 Intake Total 600 Balance 600 Intake: Oral 600 Other: Voiding Method Toilet Urinal # Voids 4 - Exam -GENERAL: The patient is alert and oriented x3, not in any acute distress obese HEENT: Pupils are round and equally reacting to light. EOMI. No scleral icterus. No conjunctival pallor. Normocephalic, atraumatic. No pharyngeal erythema. No thyromegaly. CARDIOVASCULAR: S1 and S2 present. No murmurs, rubs, or gallops. -PULMONARY: Chest is clear to auscultation, decreased breath sounds on both sides scattered wheezing and crackers ABDOMEN: Soft, nontender, nondistended, normoactive bowel sounds. No palpable organomegaly. MUSCULOSKELETAL: No joint swelling or deformity. EXTREMITIES: No cyanosis, clubbing, or pedal edema. NEUROLOGICAL: Gross neurological examination did not reveal any focal deficits. SKIN: No rashes. no petechiae. - Labs CBC & Chem 7: 03/16/20 05:59 03/16/20 05:59 Labs: Abnormal Lab Results - Last 24 Hours (Table) 03/14/20 03/14/20 03/14/20 Range/Units 06:00 11:37 16:56 RBC (4.30-5.90) m/uL Hgb (13.0-17.5) gm/dL Hct (39.0-53.0) % Sodium 133 L (135-145) mmol/L Potassium 3.3 L (3.5-5.5) mmol/L Chloride 93 L (96-109) mmol/L Glucose 142 H (70-110) mg/dL POC Glucose (mg/dL) 222 H 191 H (75-99) mg/dL Calcium 7.9 L (8.7-10.3) mg/dL AST 81 H (14-35) U/L Lactate Dehydrogenase 493 H (120-246) U/L C-Reactive Protein 22.0 H (0.0-0.8) mg/dL Total Protein 5.8 L (6.2-8.2) g/dL Albumin 3.70 L (3.80-4.90) g/dL HDL Cholesterol 22.0 L (40.0-60.0) mg/dL 03/14/20 03/15/20 03/15/20 Range/Units 20:43 06:09 07:04 RBC 4.06 L (4.30-5.90) m/uL Hgb 11.8 L (13.0-17.5) gm/dL Hct 36.2 L (39.0-53.0) % Sodium (135-145) mmol/L Potassium (3.5-5.5) mmol/L Chloride (96-109) mmol/L Glucose (70-110) mg/dL POC Glucose (mg/dL) 202 H 174 H (75-99) mg/dL Calcium (8.7-10.3) mg/dL AST (14-35) U/L Lactate Dehydrogenase (120-246) U/L C-Reactive Protein (0.0-0.8) mg/dL Total Protein (6.2-8.2) g/dL Albumin (3.80-4.90) g/dL HDL Cholesterol (40.0-60.0) mg/dL Microbiology - Last 24 Hours (Table) 03/13/20 15:42 Blood Culture - Preliminary Blood No Growth after 24 hours Assessment and Plan Assessment: Bilateral covid pneumonia Acute hypoxic respiratory failure secondary to above Morbid obesity Type 2 diabetes mellitus Hyperlipidemia Plan: This is a pleasant 55 years old male who presents with bilateral pneumonia secondary to coughing. Continue with antibiotic continue with remedsvir and therapeutic dose of Lovenox, continue with gentle hydration. Follow-up luke mmendation by pulmonary and infectious disease. Labs and medication were reviewed.. Continue same treatment. Continue with symptomatic treatment. Resume home medication. Monitor lytes and vitals. DVT and GI prophylaxis. Further recommendationsas per clinical course of the patient DVT prophylaxis: Subcutaneous Lovenox GI Prophylaxis: Pepcid Prognosis is guarded
[2020-03-16 12:12] LABS: Glucose,Whole Blood 188 mg/dL (75-99)
--- NOTE | 2020-03-16 12:49 | P.PN ---
Subjective Progress Note Date: 03/16/20 Principal diagnosis: COVID 19 viral pneumonia 55-year-old male patient, obesity with a BMI of 40.7, diabetic, started having shortness of breath around 3 days prior to his hospital visit. The patient also started having fever and chills and generalized body aches and he ultimately went to an urgent care where the rapid covid testing was done and the patient checked positive. He was subsequently the patient was asked to come into the hospital and he presented to the emergency department where he was having increased cough and shortness of breath and he was admitted to the hospital for further care. Noted the patient was found to be hypoxic. Initially was placed on oxygen at 2 L per minute nasal cannula and over the past 24 hours his oxidation is been worse and is currently up to 15 L of oxygen by nasal cannula to maintain a saturation above 90%. He is still having low-grade fever with a temperature 100.8. He has no leukocytosis. Blood work essentially within normal limits. His LDH level is at 493. His CRP level is at 22. LFTs showed an AST of 81 and ALT of 38 with an alkaline phosphatase of 60. The UA is been showing +1 protein otherwise negative. The patient had a d-dimer of 0.86. The CAT scan of the chest was done and showed extensive peripheral patchy bilateral pulmonary infiltrates and airspace disease typical of gibbs Covid 19 infection. Based on a declining course, the patient was started on Decadron 6 mg orally once a day and the patient is also currently on remdesivir per protocol. He is receiving sulfate to 20 mg on a daily basis and addition to vitamin C and melatonin. He denies having any significant shortness of breath. His resting comfortably in bed. He is hemodynamically stable. No hemoptysis. No pleurisy. No sputum production. No other complaints otherwise for now. No nausea. No vomiting. No diarrhea. No headaches. On 03/15/2020 patient seen in follow-up on medical surgical floor, he is currently in 15 minutes of oxygen, his pulse ox is 95%, patient is self pronating in bed, he is currently living in his abdomen, tolerating it well, no worsening dyspnea, no significant cough, no chest pain, is awake and alert, oriented 3, does get short of breath with exertion, his been afebrile. Remains on empiric antibiotics, currently on IV Rocephin, he is receiving Remdesivir, he is on day 3 of treatment, he is on Lovenox 60 mg every 12 hours, Pepcid, and zinc supplementation. Denies any chest pain, no hemoptysis, no nausea vomiting or diarrhea. No headaches. No new chest x-ray today. LDH is 598, up slightly from 493 on yesterday's labs, but overall trending down since admission, CRP is trending down to 11, pro-calcitonin came back at 0.70, blood cultures have been negative, patient is covered with Rocephin for empiric antibody coverage. On 03/16/2020 patient seen in follow-up on medical surgical floor. On 15 L of oxygen per patient pulse ox is 93%, FiO2 was dropped down to 13 L, breathing is comfortable, no worsening cough or congestion, patient is afebrile, vitals been stable, patient has been successfully self-proning, he is receiving Remdesivir, he is on day 4 of treatment, patient continues on antibiotics, zinc supplement. Today's labs have been reviewed, LDH remains stable at 592, CRP is trending down Objective - Vital Signs Vital signs: Vital Signs Temp 97.8 F 03/16/20 07:00 Pulse 76 03/16/20 07:00 Resp 21 03/16/20 07:00 BP 125/57 03/16/20 07:00 Pulse Ox 93 L 03/16/20 07:00 Intake & Output 03/15/20 03/16/20 03/16/20 18:59 06:59 18:59 Output Total 600 600 Balance -600 -600 Output: Urine 600 600 Other: Voiding Method Toilet Urinal # Voids 1 - Exam GENERAL EXAM: Alert, very pleasant, 55-year-old, white male, on 13 L of oxygen, currently laying on his abdomen, soft morning, with pulse ox of 93% comfortable in no apparent distress. HEAD: Normocephalic/atraumatic. EYES: Normal reaction of pupils, equal size. Conjunctiva pink, sclera white. NOSE: Clear with pink turbinates. THROAT: No erythema or exudates. NECK: No masses, no JVD, no thyroid enlargement, no adenopathy. CHEST: No chest wall deformity. Symmetrical expansion. LUNGS: Equal air entry with no crackles, wheeze, rhonchi or dullness. CVS: Regular rate and rhythm, normal S1 and S2, no gallops, no murmurs, no rubs ABDOMEN: Soft, nontender. No hepatosplenomegaly, normal bowel sounds, no guarding or rigidity. EXTREMITIES: No clubbing, no edema, no cyanosis, 2+ pulses and upper and lower extremities. MUSCULOSKELETAL: Muscle strength and tone normal. SPINE: No scoliosis or deformity SKIN: No rashes CENTRAL NERVOUS SYSTEM: Alert and oriented -3. No focal deficits, tone is normal in all 4 extremities. PSYCHIATRIC: Alert and oriented -3. Appropriate affect. Intact judgment and insight. - Labs CBC & Chem 7: 03/16/20 05:59 03/16/20 05:59 Labs: Abnormal Lab Results - Last 24 Hours (Table) 03/15/20 03/15/20 03/15/20 Range/Units 06:09 16:33 21:17 RBC (4.30-5.90) m/uL Hgb (13.0-17.5) gm/dL Hct (39.0-53.0) % Anion Gap (4.00-12.00) mmol/L BUN/Creatinine Ratio (12.00-20.00) Ratio Glucose (70-110) mg/dL POC Glucose (mg/dL) 166 H 155 H (75-99) mg/dL Hemoglobin A1c 7.5 H (4.0-6.0) % Calcium (8.7-10.3) mg/dL AST (14-35) U/L Lactate Dehydrogenase (120-246) U/L C-Reactive Protein (0.0-0.8) mg/dL Total Protein (6.2-8.2) g/dL 03/16/20 03/16/20 03/16/20 Range/Units 05:59 05:59 07:20 RBC 4.12 L (4.30-5.90) m/uL Hgb 11.6 L (13.0-17.5) gm/dL Hct 36.3 L (39.0-53.0) % Anion Gap 12.10 H (4.00-12.00) mmol/L BUN/Creatinine Ratio 31.43 H (12.00-20.00) Ratio Glucose 141 H (70-110) mg/dL POC Glucose (mg/dL) 140 H (75-99) mg/dL Hemoglobin A1c (4.0-6.0) % Calcium 8.4 L (8.7-10.3) mg/dL AST 68 H (14-35) U/L Lactate Dehydrogenase 592 H (120-246) U/L C-Reactive Protein 6.2 H (0.0-0.8) mg/dL Total Protein 6.0 L (6.2-8.2) g/dL 03/16/20 Range/Units 12:10 RBC (4.30-5.90) m/uL Hgb (13.0-17.5) gm/dL Hct (39.0-53.0) % Anion Gap (4.00-12.00) mmol/L BUN/Creatinine Ratio (12.00-20.00) Ratio Glucose (70-110) mg/dL POC Glucose (mg/dL) 188 H (75-99) mg/dL Hemoglobin A1c (4.0-6.0) % Calcium (8.7-10.3) mg/dL AST (14-35) U/L Lactate Dehydrogenase (120-246) U/L C-Reactive Protein (0.0-0.8) mg/dL Total Protein (6.2-8.2) g/dL Microbiology - Last 24 Hours (Table) 03/13/20 15:42 Blood Culture - Preliminary Blood No Growth after 48 hours 03/14/20 15:05 Blood Culture - Preliminary Blood No Growth after 24 hours Assessment and Plan Plan: Assessment: 1 acute bilateral pneumonia due to Covid 19 viral infection 2 acute hypoxic respiratory failure with progressive worsening in her oxygenation currently the patient on 15 L of oxygen by nasal cannula. 3 dyspnea secondary to above 4 obesity with a BMI of 40.7 5 hypertension 6 diabetes mellitus 7 hyperlipidemia Plan: Continue current medical treatment, continue with proning maneuvers, vitals stable, we'll obtain follow-up chest x-ray in the morning, continue monitoring for worsening dyspnea worsening oxygenation, may consider moving the patient to the unit if he worsens, appears slightly better on today's exam, breathing comfortably, we'll continue to follow I performed a history & physical examination of the patient and discussed their management with my nurse practitioner, Isela Hill. I reviewed the nurse practitioner's note and agree with the documented findings and plan of care. Lung sounds are positive for diminished breath sounds. The findings and the impression was discussed with the patient. I attest to the documentation by the nurse practitioner. Time with Patient: Less than 30
--- NOTE | 2020-03-16 13:15 | P.PN ---
Subjective This is a pleasant 55 years old male with past medical history of diabetes mellitus type 2 and hyperlipidemia. Presents with respiratory signs and symptoms and found to have bilateral pneumonia secondary to covert, patient also have worsening respiratory function yesterday and his oxygen requirements went up from 5 L TO 15 L/m of oxygen via high flow nasal cannula. Patient today was seen in the prone position, he feels a little better and more stable compared to yesterday. He still have coughing and is still taking anti-tussive medication. He had a fever yesterday of 100.1. CBC looks stable today. Glucose controlled. Inflammatory markers including lactate dehydrogenase and C-reactive protein and ferritin were elevated. D-dimer was mildly elevated at 0.86. Patient is currently covered with therapeutic doses of Lovenox 60 mg twice a day. Also he is on ceftriaxone, remdesvir and normal saline at 75 mL/h. Pulmonary and infectious disease on the case and their input is appreciated. 03/16/2029 Patient remains on telemetry to [facility] in which is being tapered down. Patient clinically looks better. Continue with rest of the medications patient shortness of breath is much better. Constitutional: Denied any fatigue denied any fever. Cardio vascular: denied any chest pain, palpitations Gastrointestinal denied any nausea vomiting Pulmonary: Denied any shortness of breath cough Neurologic denied any new focal deficits All inpatient medications were reviewed and appropriate changes in these medications as dictated in the interval history and assessment and plan. Objective - Vital Signs Vital signs: Vital Signs Temp 97.8 F 03/16/20 07:00 Pulse 76 03/16/20 07:00 Resp 21 03/16/20 07:00 BP 125/57 03/16/20 07:00 Pulse Ox 93 L 03/16/20 07:00 Intake & Output 03/15/20 03/16/20 03/16/20 18:59 06:59 18:59 Output Total 600 600 Balance -600 -600 Output: Urine 600 600 Other: Voiding Method Toilet Urinal # Voids 1 - Exam PHYSICAL EXAMINATION: GENERAL: The patient is alert and oriented x3, not in any acute distress. Well developed, well nourished. HEENT: Pupils are round and equally reacting to light. EOMI. No scleral icterus. No conjunctival pallor. Normocephalic, atraumatic. No pharyngeal erythema. No thyromegaly. CARDIOVASCULAR: S1 and S2 present. No murmurs, rubs, or gallops. PULMONARY: Mild expiratory wheezing with some bilateral rhonchi ABDOMEN: Soft, nontender, nondistended, normoactive bowel sounds. No palpable organomegaly. MUSCULOSKELETAL: No joint swelling or deformity. EXTREMITIES: No cyanosis, clubbing, or pedal edema. NEUROLOGICAL: Gross neurological examination did not reveal any focal deficits. SKIN: No rashes. Note: Because of COVID 19 isolation, some of the history and physical exam findings or indirect and obtained from nursing staff, and other physician examinations to avoid unnecessary contact with the patient. - Labs CBC & Chem 7: 03/16/20 05:59 03/16/20 05:59 Labs: Abnormal Lab Results - Last 24 Hours (Table) 03/15/20 03/15/20 03/15/20 Range/Units 06:09 16:33 21:17 RBC (4.30-5.90) m/uL Hgb (13.0-17.5) gm/dL Hct (39.0-53.0) % Anion Gap (4.00-12.00) mmol/L BUN/Creatinine Ratio (12.00-20.00) Ratio Glucose (70-110) mg/dL POC Glucose (mg/dL) 166 H 155 H (75-99) mg/dL Hemoglobin A1c 7.5 H (4.0-6.0) % Calcium (8.7-10.3) mg/dL AST (14-35) U/L Lactate Dehydrogenase (120-246) U/L C-Reactive Protein (0.0-0.8) mg/dL Total Protein (6.2-8.2) g/dL 03/16/20 03/16/20 03/16/20 Range/Units 05:59 05:59 07:20 RBC 4.12 L (4.30-5.90) m/uL Hgb 11.6 L (13.0-17.5) gm/dL Hct 36.3 L (39.0-53.0) % Anion Gap 12.10 H (4.00-12.00) mmol/L BUN/Creatinine Ratio 31.43 H (12.00-20.00) Ratio Glucose 141 H (70-110) mg/dL POC Glucose (mg/dL) 140 H (75-99) mg/dL Hemoglobin A1c (4.0-6.0) % Calcium 8.4 L (8.7-10.3) mg/dL AST 68 H (14-35) U/L Lactate Dehydrogenase 592 H (120-246) U/L C-Reactive Protein 6.2 H (0.0-0.8) mg/dL Total Protein 6.0 L (6.2-8.2) g/dL 03/16/20 Range/Units 12:10 RBC (4.30-5.90) m/uL Hgb (13.0-17.5) gm/dL Hct (39.0-53.0) % Anion Gap (4.00-12.00) mmol/L BUN/Creatinine Ratio (12.00-20.00) Ratio Glucose (70-110) mg/dL POC Glucose (mg/dL) 188 H (75-99) mg/dL Hemoglobin A1c (4.0-6.0) % Calcium (8.7-10.3) mg/dL AST (14-35) U/L Lactate Dehydrogenase (120-246) U/L C-Reactive Protein (0.0-0.8) mg/dL Total Protein (6.2-8.2) g/dL Microbiology - Last 24 Hours (Table) 03/13/20 15:42 Blood Culture - Preliminary Blood No Growth after 48 hours 03/14/20 15:05 Blood Culture - Preliminary Blood No Growth after 24 hours Assessment and Plan Plan: Bilateral covid pneumonia Acute hypoxic respiratory failure secondary to above obesity Type 2 diabetes mellitus Hyperlipidemia Plan: This is a pleasant 55 years old male who presents with bilateral pneumonia secondary to Covid 19. Continue with antibiotic continue with remedsvir and therapeutic dose of Lovenox, continue with gentle hydration. Labs and medication were reviewed.. Continue same treatment. Monitor lytes and vitals. DVT and GI prophylaxis. Wean off oxygen past tolerated DVT prophylaxis: Subcutaneous Lovenox GI Prophylaxis: Pepcid Prognosis is guarded
[2020-03-16 17:02] LABS: Glucose,Whole Blood 218 mg/dL (75-99)
[2020-03-16 20:16] LABS: Glucose,Whole Blood 276 mg/dL (75-99)
[2020-03-16 21:55] LABS: Glucose,Whole Blood 239 mg/dL (75-99)
[2020-03-16] MEDS: ATORVASTATIN 10 MG TAB PO SCH (22:16)
--- NOTE | 2020-03-16 23:20 | PN ---
PROGRESS NOTE DATE OF SERVICE: 03/16/2020 REASON FOR FOLLOWUP: Acute COVID-19 pneumonia. INTERVAL HISTORY: The patient is currently afebrile. The patient is breathing more comfortably. FiO2 requirement has come down to 10 liters. No chest pain or shortness of breath. Minimal cough. No nausea, no vomiting. No abdominal pain or diarrhea. PHYSICAL EXAMINATION: Blood pressure 103/65, pulse of 60, temperature 98. He is 95% on 10 L nasal cannula. General description is a middle-aged male up in the bed in no distress. RESPIRATORY SYSTEM: Unlabored breathing with decreased intensity of breath sounds. No wheeze. HEART: S1, S2. Regular rate and rhythm. ABDOMEN: Soft. No tenderness. LABS: No new labs have been obtained today. DIAGNOSTIC IMPRESSION AND PLAN: Patient with acute COVID-19 pneumonia, currently covered with remdesivir, dexamethasone, Lovenox; to continue, as patient seems to have shown clinical improvement. Continue with supportive care. MMODL / IJN: [id number] /
[2020-03-17] MEDS: ALBUTEROL HFA INHALER INHALATION SCH ×4 (01:21→19:29)
[2020-03-17] MEDS: INSULIN ASPART (NovoLOG) 100 UNIT/ML VIAL SQ SCH ×4 (07:18→21:31)
[2020-03-17 07:19] LABS: Glucose,Whole Blood 134 mg/dL (75-99)
--- NOTE | 2020-03-17 09:03 | XR ---
EXAMINATION TYPE: XR chest 1V portable DATE OF EXAM: 03/17/2020 COMPARISON: 03/14/2020 INDICATION: Covid 19 TECHNIQUE: Single frontal view of the chest is obtained. FINDINGS: The heart size is normal. The pulmonary vasculature is normal. Some mild left suprahilar infiltrate appears to be resolving. Mild left lower lobe infiltrate is pres ent. Mild peripheral right lower lobe infiltrate is present slightly greater. IMPRESSION: 1. Scattered bilateral peripheral infiltrates at the lung bases and left suprahilar region. There may be some slight improvement on the left slight worsening on the right. Continued follow-up is recomme nded.
[2020-03-17] MEDS: BENZONATATE 100 MG CAP PO SCH ×3 (09:34→21:31)
[2020-03-17] MEDS: CHOLECALCIFEROL 1,000 UNIT TAB PO SCH (09:34)
[2020-03-17] MEDS: FAMOTIDINE 20 MG TAB PO SCH ×2 (09:34→21:31)
[2020-03-17] MEDS: ZINC SULFATE 220 MG CAP PO SCH (09:35)
[2020-03-17] MEDS: dexAMETHasone 2 MG TAB PO SCH (09:35)
[2020-03-17] MEDS: ENOXAPARIN 60 MG/0.6 ML SYRINGE SQ SCH ×2 (09:36→21:30)
--- NOTE | 2020-03-17 10:02 | P.PN ---
Subjective This is a pleasant 55 years old male with past medical history of diabetes mellitus type 2 and hyperlipidemia. Presents with respiratory signs and symptoms and found to have bilateral pneumonia secondary to covert, patient also have worsening respiratory function yesterday and his oxygen requirements went up from 5 L TO 15 L/m of oxygen via high flow nasal cannula. Patient today was seen in the prone position, he feels a little better and more stable compared to yesterday. He still have coughing and is still taking anti-tussive medication. He had a fever yesterday of 100.1. CBC looks stable today. Glucose controlled. Inflammatory markers including lactate dehydrogenase and C-reactive protein and ferritin were elevated. D-dimer was mildly elevated at 0.86. Patient is currently covered with therapeutic doses of Lovenox 60 mg twice a day. Also he is on ceftriaxone, remdesvir and normal saline at 75 mL/h. Pulmonary and infectious disease on the case and their input is appreciated. 03/16/2020 Patient remains on telemetry to [facility] in which is being tapered down. Patient clinically looks better. Continue with rest of the medications patient shortness of breath is much better. 03/17/2020 Patient can use to get better patient is presently on 10 L of oxygen which is being tapered down saturating at 95% Constitutional: Denied any fatigue denied any fever. Cardio vascular: denied any chest pain, palpitations Gastrointestinal denied any nausea vomiting Pulmonary: Denied any shortness of breath cough Neurologic denied any new focal deficits All inpatient medications were reviewed and appropriate changes in these me dications as dictated in the interval history and assessment and plan. Objective - Vital Signs Vital signs: Vital Signs Temp 97.5 F L 03/17/20 07:15 Pulse 67 03/17/20 07:15 Resp 17 03/17/20 07:15 BP 116/66 03/17/20 07:15 Pulse Ox 95 03/17/20 07:15 Intake & Output 03/16/20 03/17/20 03/17/20 18:59 06:59 18:59 Intake Total 1376 Output Total 1500 700 Balance 1376 -1500 -700 Intake: Oral 1376 Output: Urine 1500 700 Other: Voiding Method Toilet Urinal # Voids 3 - Exam PHYSICAL EXAMINATION: GENERAL: The patient is alert and oriented x3, not in any acute distress. Well developed, well nourished. HEENT: Pupils are round and equally reacting to light. EOMI. No scleral icterus. No conjunctival pallor. Normocephalic, atraumatic. No pharyngeal erythema. No thyromegaly. CARDIOVASCULAR: S1 and S2 present. No murmurs, rubs, or gallops. PULMONARY: Mild expiratory wheezing with some bilateral rhonchi ABDOMEN: Soft, nontender, nondistended, normoactive bowel sounds. No palpable organomegaly. MUSCULOSKELETAL: No joint swelling or deformity. EXTREMITIES: No cyanosis, clubbing, or pedal edema. NEUROLOGICAL: Gross neurological examination did not reveal any focal deficits. SKIN: No rashes. Note: Because of COVID 19 isolation, some of the history and physical exam findings or indirect and obtained from nursing staff, and other physician examinations to avoid unnecessary contact with the patient. - Labs CBC & Chem 7: 03/16/20 05:59 03/16/20 05:59 Labs: Abnormal Lab Results - Last 24 Hours (Table) 03/16/20 03/16/20 03/16/20 Range/Units 12:10 17:01 20:15 POC Glucose (mg/dL) 188 H 218 H 276 H (75-99) mg/dL 03/16/20 03/17/20 Range/Units 21:54 07:11 POC Glucose (mg/dL) 239 H 134 H (75-99) mg/dL Microbiology - Last 24 Hours (Table) 03/13/20 15:42 Blood Culture - Preliminary Blood No Growth after 72 hours 03/14/20 15:05 Blood Culture - Preliminary Blood No Growth after 48 hours Assessment and Plan Plan: Bilateral covid pneumonia Acute hypoxic respiratory failure secondary to above obesity Type 2 diabetes mellitus Hyperlipidemia Plan: This is a pleasant 55 years old male who presents with bilateral pneumonia secondary to Covid 19. Continue with antibiotic continue with remedsvir and therapeutic dose of Lovenox, continue with gentle hydration. Labs and medication were reviewed.. Continue same treatment. Monitor lytes and vitals. DVT and GI prophylaxis. Wean off oxygen past tolerated DVT prophylaxis: Subcutaneous Lovenox GI Prophylaxis: Pepcid Prognosis is guarded
[2020-03-17] MEDS: REMDESIVIR (EUA) 100 MG in SODIUM CHLORIDE 0.9% 250 ML IVPB SCH (11:43)
[2020-03-17] MEDS: SODIUM CHLORIDE 0.9% 1,000 ML IV SCH (11:43)
[2020-03-17 11:45] LABS: Glucose,Whole Blood 174 mg/dL (75-99)
--- NOTE | 2020-03-17 13:11 | P.PN ---
Subjective Progress Note Date: 03/17/20 Principal diagnosis: COVID 19 viral pneumonia 55-year-old male patient, obesity with a BMI of 40.7, diabetic, started having shortness of breath around 3 days prior to his hospital visit. The patient also started having fever and chills and generalized body aches and he ultimately went to an urgent care where the rapid covid testing was done and the patient checked positive. He was subsequently the patient was asked to come into the hospital and he presented to the emergency department where he was having increased cough and shortness of breath and he was admitted to the hospital for further care. Noted the patient was found to be hypoxic. Initially was placed on oxygen at 2 L per minute nasal cannula and over the past 24 hours his oxidation is been worse and is currently up to 15 L of oxygen by nasal cannula to maintain a saturation above 90%. He is still having low-grade fever with a temperature 100.8. He has no leukocytosis. Blood work essentially within normal limits. His LDH level is at 493. His CRP level is at 22. LFTs showed an AST of 81 and ALT of 38 with an alkaline phosphatase of 60. The UA is been showing +1 protein otherwise negative. The patient had a d-dimer of 0.86. The CAT scan of the chest was done and showed extensive peripheral patchy bilateral pulmonary infiltrates and airspace disease typical of gibbs Covid 19 infection. Based on a declining course, the patient was started on Decadron 6 mg orally once a day and the patient is also currently on remdesivir per protocol. He is receiving sulfate to 20 mg on a daily basis and addition to vitamin C and melatonin. He denies having any significant shortness of breath. His resting comfortably in bed. He is hemodynamically stable. No hemoptysis. No pleurisy. No sputum production. No other complaints otherwise for now. No nausea. No vomiting. No diarrhea. No headaches. On 03/15/2020 patient seen in follow-up on medical surgical floor, he is currently in 15 minutes of oxygen, his pulse ox is 95%, patient is self pronating in bed, he is currently living in his abdomen, tolerating it well, no worsening dyspnea, no significant cough, no chest pain, is awake and alert, oriented 3, does get short of breath with exertion, his been afebrile. Remains on empiric antibiotics, currently on IV Rocephin, he is receiving Remdesivir, he is on day 3 of treatment, he is on Lovenox 60 mg every 12 hours, Pepcid, and zinc supplementation. Denies any chest pain, no hemoptysis, no nausea vomiting or diarrhea. No headaches. No new chest x-ray today. LDH is 598, up slightly from 493 on yesterday's labs, but overall trending down since admission, CRP is trending down to 11, pro-calcitonin came back at 0.70, blood cultures have been negative, patient is covered with Rocephin for empiric antibody coverage. On 03/16/2020 patient seen in follow-up on medical surgical floor. On 15 L of oxygen per patient pulse ox is 93%, FiO2 was dropped down to 13 L, breathing is comfortable, no worsening cough or congestion, patient is afebrile, vitals been stable, patient has been successfully self-proning, he is receiving Remdesivir, he is on day 4 of treatment, patient continues on antibiotics, zinc supplement. Today's labs have been reviewed, LDH remains stable at 592, CRP is trending down On 03/17/2020 patient seen in follow-up on the general medical surgical floor, FiO2 is down to 5 L, patient is feeling better, his been afebrile, he is on day 4 of his Remdesivir treatment, he remains on oral Decadron, prophylactic doses of Lovenox, Pepcid, zinc supplement, doing well, feeling better, no nausea vomiting no diarrhea, no complaints of worsening dyspnea or chest discomfort. No acute events overnight. Today's labs have been reviewed, LDH remains relati vely stable, CRP is trending down. Objective - Vital Signs Vital signs: Vital Signs Temp 97.5 F L 03/17/20 07:15 Pulse 67 03/17/20 07:15 Resp 20 03/17/20 10:56 BP 116/66 03/17/20 07:15 Pulse Ox 91 L 03/17/20 10:56 Intake & Output 03/16/20 03/17/20 03/17/20 18:59 06:59 18:59 Intake Total 1376 Output Total 1500 700 Balance 1376 -1500 -700 Intake: Oral 1376 Output: Urine 1500 700 Other: Voiding Method Toilet Urinal # Voids 3 - Exam GENERAL EXAM: Alert, very pleasant, 55-year-old, white male, on 5 L of oxygen, pulse ox of 95% currently laying on his abdomen,comfortable in no apparent distress. HEAD: Normocephalic/atraumatic. EYES: Normal reaction of pupils, equal size. Conjunctiva pink, sclera white. NOSE: Clear with pink turbinates. THROAT: No erythema or exudates. NECK: No masses, no JVD, no thyroid enlargement, no adenopathy. CHEST: No chest wall deformity. Symmetrical expansion. LUNGS: Equal air entry with no crackles, wheeze, rhonchi or dullness. CVS: Regular rate and rhythm, normal S1 and S2, no gallops, no murmurs, no rubs ABDOMEN: Soft, nontender. No hepatosplenomegaly, normal bowel sounds, no guarding or rigidity. EXTREMITIES: No clubbing, no edema, no cyanosis, 2+ pulses and upper and lower extremities. MUSCULOSKELETAL: Muscle strength and tone normal. SPINE: No scoliosis or deformity SKIN: No rashes CENTRAL NERVOUS SYSTEM: Alert and oriented -3. No focal deficits, tone is normal in all 4 extremities. PSYCHIATRIC: Alert and oriented -3. Appropriate affect. Intact judgment and i nsight. - Labs CBC & Chem 7: 03/16/20 05:59 03/16/20 05:59 Labs: Abnormal Lab Results - Last 24 Hours (Table) 03/16/20 03/16/20 03/16/20 Range/Units 17:01 20:15 21:54 POC Glucose (mg/dL) 218 H 276 H 239 H (75-99) mg/dL 03/17/20 03/17/20 Range/Units 07:11 11:43 POC Glucose (mg/dL) 134 H 174 H (75-99) mg/dL Microbiology - Last 24 Hours (Table) 03/13/20 15:42 Blood Culture - Preliminary Blood No Growth after 72 hours 03/14/20 15:05 Blood Culture - Preliminary Blood No Growth after 48 hours Assessment and Plan Plan: Assessment: 1 acute bilateral pneumonia due to Covid 19 viral infection, initiated on R emdesivir 2 acute hypoxic respiratory failure with progressive worsening in her oxygenation currently the patient on 15 L of oxygen by nasal cannula. On 03/17/2020 patient's oxygenation is improving, FiO2 is currently down to 5 L 3 dyspnea secondary to above 4 obesity with a BMI of 40.7 5 hypertension 6 diabetes mellitus 7 hyperlipidemia Plan: Continue current medical treatment, Remdesivir, oral steroids, prophylactic doses of Lovenox, clinical patient is feeling better, FiO2 is down to 5 L, today's chest x-ray has been reviewed, showing some improvement in the appearance of peripheral infiltrates. Inflammatory markers are improving, we'll continue to follow. I performed a history & physical examination of the patient and discussed their management with my nurse practitioner, Isela Hill. I reviewed the nurse practitioner's note and agree with the documented findings and plan of care. Lung sounds are positive for diminished breath sounds. The findings and the impression was discussed with the patient. I attest to the documentation by the nurse practitioner. Time with Patient: Less than 30
[2020-03-17 17:06] LABS: Glucose,Whole Blood 220 mg/dL (75-99)
[2020-03-17 20:59] LABS: Glucose,Whole Blood 191 mg/dL (75-99)
[2020-03-17] MEDS: ATORVASTATIN 10 MG TAB PO SCH (21:30)
--- NOTE | 2020-03-17 23:36 | PN ---
PROGRESS NOTE DATE OF SERVICE: 03/17/2020 REASON FOR FOLLOWUP: Acute COVID-19 pneumonia. INTERVAL HISTORY: The patient is currently afebrile. The patient is breathing comfortably. The patient O2 requirement is down to 5 L. No chest pain. No shortness of breath. Minimal cough. No nausea, no vomiting. No abdominal pain, no diarrhea. PHYSICAL EXAMINATION: Blood pressure is 111/72 with a pulse of 64, temperature 98.4. He is 94% on 5 L nasal cannula. General description is a middle-aged male up in the chair in no distress. RESPIRATORY SYSTEM: Unlabored breathing, decreased intensity of breath sounds. No wheeze. HEART: S1, S2. Regular rate and rhythm. ABDOMEN: Soft, no tenderness. LABS: No new labs have been obtained today. Blood culture has been negative. The patient did have a chest x-ray which did show scattered bilateral peripheral infiltrate with some improvement. DIAGNOSTIC IMPRESSION AND PLAN: Patient has acute COVID-19 pneumonia in this patient currently clinically responding to remdesivir, Lovenox, dexamethasone to continue and monitor clinical course closely. MMODL / IJN: [id number] /
[2020-03-18] MEDS: ALBUTEROL HFA INHALER INHALATION SCH ×5 (00:35→19:40)
[2020-03-18 07:07] LABS: Glucose,Whole Blood 129 mg/dL (75-99)
[2020-03-18] MEDS: INSULIN ASPART (NovoLOG) 100 UNIT/ML VIAL SQ SCH ×4 (07:47→20:31)
[2020-03-18] MEDS: CHOLECALCIFEROL 1,000 UNIT TAB PO SCH (07:53)
[2020-03-18] MEDS: BENZONATATE 100 MG CAP PO SCH ×3 (07:53→20:12)
[2020-03-18] MEDS: ZINC SULFATE 220 MG CAP PO SCH (07:53)
[2020-03-18] MEDS: FAMOTIDINE 20 MG TAB PO SCH ×2 (07:54→20:12)
[2020-03-18] MEDS: dexAMETHasone 2 MG TAB PO SCH (07:54)
[2020-03-18] MEDS: ENOXAPARIN 60 MG/0.6 ML SYRINGE SQ SCH ×2 (07:56→20:12)
[2020-03-18 10:58] VITALS: BMI 48.7
[2020-03-18 11:40] LABS: Glucose,Whole Blood 170 mg/dL (75-99)
[2020-03-18] MEDS: SODIUM CHLORIDE 0.9% 1,000 ML IV SCH (11:43)
--- NOTE | 2020-03-18 13:32 | P.PN ---
Subjective Progress Note Date: 03/18/20 Principal diagnosis: CoVID 19 viral pneumonia 55-year-old male patient, obesity with a BMI of 40.7, diabetic, started having shortness of breath around 3 days prior to his hospital visit. The patient also started having fever and chills and generalized body aches and he ultimately went to an urgent care where the rapid covid testing was done and the patient checked positive. He was subsequently the patient was asked to come into the hospital and he presented to the emergency department where he was having increased cough and shortness of breath and he was admitted to the hospital for further care. Noted the patient was found to be hypoxic. Initially was placed on oxygen at 2 L per minute nasal cannula and over the past 24 hours his oxidation is been worse and is currently up to 15 L of oxygen by nasal cannula to maintain a saturation above 90%. He is still having low-grade fever with a temperature 100.8. He has no leukocytosis. Blood work essentially within normal limits. His LDH level is at 493. His CRP level is at 22. LFTs showed an AST of 81 and ALT of 38 with an alkaline phosphatase of 60. The UA is been showing +1 protein otherwise negative. The patient had a d-dimer of 0.86. The CAT scan of the chest was done and showed extensive peripheral patchy bilateral pulmonary infiltrates and airspace disease typical of gibbs Covid 19 infection. Based on a declining course, the patient was started on Decadron 6 mg orally once a day and the patient is also currently on remdesivir per protocol. He is receiving sulfate to 20 mg on a daily basis and addition to vitamin C and melatonin. He denies having any significant shortness of breath. His resting comfortably in bed. He is hemodynamically stable. No hemoptysis. No pleurisy. No sputum production. No other complaints otherwise for now. No nausea. No vomiting. No diarrhea. No headaches. On 03/15/2020 patient seen in follow-up on medical surgical floor, he is currently in 15 minutes of oxygen, his pulse ox is 95%, patient is self pronating in bed, he is currently living in his abdomen, tolerating it well, no worsening dyspnea, no significant cough, no chest pain, is awake and alert, oriented 3, does get short of breath with exertion, his been afebrile. Remains on empiric antibiotics, currently on IV Rocephin, he is receiving Remdesivir, he is on day 3 of treatment, he is on Lovenox 60 mg every 12 hours, Pepcid, and zinc supplementation. Denies any chest pain, no hemoptysis, no nausea vomiting or diarrhea. No headaches. No new chest x-ray today. LDH is 598, up slightly from 493 on yesterday's labs, but overall trending down since admission, CRP is trending down to 11, pro-calcitonin came back at 0.70, blood cultures have been negative, patient is covered with Rocephin for empiric antibody coverage. On 03/16/2020 patient seen in follow-up on medical surgical floor. On 15 L of oxygen per patient pulse ox is 93%, FiO2 was dropped down to 13 L, breathing is comfortable, no worsening cough or congestion, patient is afebrile, vitals been stable, patient has been successfully self-proning, he is receiving Remdesivir, he is on day 4 of treatment, patient continues on antibiotics, zinc supplement. Today's labs have been reviewed, LDH remains stable at 592, CRP is trending down On 03/17/2020 patient seen in follow-up on the general medical surgical floor, FiO2 is down to 5 L, patient is feeling better, his been afebrile, he is on day 4 of his Remdesivir treatment, he remains on oral Decadron, prophylactic doses of Lovenox, Pepcid, zinc supplement, doing well, feeling better, no nausea vomiting no diarrhea, no complaints of worsening dyspnea or chest discomfort. No acute events overnight. Today's labs have been reviewed, LDH remains relativ cesar stable, CRP is trending down. The patient is seen today 03/18/2020 in follow-up on the regular medical floor. He is currently sitting up at the bedside. Awake and alert in no acute distress. Still requiring 5 L high flow nasal cannula to maintain O2 saturations in the 90s. He is afebrile. Hemodynamically stable. Blood culture reveals no growth to date. Sputum culture pending. Blood glucose 170. This is day 5 of his Remdesivir treatment. He is continued on vitamin D, dexamethasone, Lipitor, Lovenox, Pepcid, zinc. Antibiotics in the form of ceftriaxone. Objective - Vital Signs Vital signs: Vital Signs Temp 97.7 F 03/18/20 07:02 Pulse 72 03/18/20 07:02 Resp 17 03/18/20 07:45 BP 117/71 03/18/20 07:02 Pulse Ox 93 L 03/18/20 07:02 Intake & Output 03/17/20 03/18/20 03/18/20 18:59 06:59 18:59 Intake Total 320 Output Total 700 750 Balance -700 -430 Weight 176.901 kg Intake: Intake, IV Titration 320 Amount Sodium Chloride 0.9% 1, 320 000 ml @ 20 mls/hr IV . Q24H [facility] Rx#:[id number] Output: Urine 700 750 Other: Voiding Method Toilet Toilet Urinal Urinal # Voids 3 - Exam GENERAL EXAM: Alert, very pleasant, 55-year-old, male patient on 5 L of oxygen, pulse ox of 93%, comfortable in no apparent distress. HEAD: Normocephalic/atraumatic. EYES: Normal reaction of pupils, equal size. Conjunctiva pink, sclera white. NOSE: Clear with pink turbinates. THROAT: No erythema or exudates. NECK: No masses, no JVD, no thyroid enlargement, no adenopathy. CHEST: No chest wall deformity. Symmetrical expansion. LUNGS: Equal air entry with no crackles, wheeze, rhonchi or dullness. CVS: Regular rate and rhythm, normal S1 and S2, no gallops, no murmurs, no rubs ABDOMEN: Soft, nontender. No hepatosplenomegaly, normal bowel sounds, no guarding or rigidity. EXTREMITIES: No clubbing, no edema, no cyanosis, 2+ pulses and upper and lower extremities. MUSCULOSKELETAL: Muscle strength and tone normal. SPINE: No scoliosis or deformity SKIN: No rashes CENTRAL NERVOUS SYSTEM: Alert and oriented -3. No focal deficits, tone is normal in all 4 extremities. PSYCHIATRIC: Alert and oriented -3. Appropriate affect. Intact judgment and insight. - Labs CBC & Chem 7: 03/16/20 05:59 03/16/20 05:59 Labs: Abnormal Lab Results - Last 24 Hours (Table) 03/17/20 03/17/20 03/18/20 Range/Units 16:42 20:57 07:03 POC Glucose (mg/dL) 220 H 191 H 129 H (75-99) mg/dL 03/18/20 Range/Units 11:36 POC Glucose (mg/dL) 170 H (75-99) mg/dL Microbiology - Last 24 Hours (Table) 03/18/20 00:44 Sputum Culture - Preliminary Sputum 03/13/20 15:42 Blood Culture - Preliminary Blood No Growth after 96 hours 03/14/20 15:05 Blood Culture - Preliminary Blood No Growth after 72 hours Assessment and Plan Assessment: 1 acute bilateral pneumonia due to Covid 19 viral infection, initiated on Remdesivir 2 acute hypoxic respiratory failure with progressive worsening in oxygenation initially the patient was requiring 15 L of oxygen by nasal cannula. On 03/18/2020 patient's oxygenation is improving, FiO2 is currently down to 5 L 3 dyspnea secondary to above 4 obesity with a BMI of 40.7 5 hypertension 6 diabetes mellitus 7 hyperlipidemia Plan: The patient was seen and evaluated by Dr. Bran Completing his course of Remdesivir Improving daily Continue the current treatment plan Continue to titrate down the FiO2 as tolerated We'll continue to follow Probable discharge in the a.m. I, the cosigning physician, performed a history & physical examination of the patient. Lungs sounds are clear. Maintaining good O2 saturations in the 90s on room air. I discussed the assessment and plan of care with my nurse practitioner, Nneka Blanco. I attest to the above note as dictated by her.
--- NOTE | 2020-03-18 14:23 | CDI ---
Documentation Clarification Form Date: 03/18/2020 01:51:26 PM From: Nilda Solis RN CCDS Admit Date: 03/13/2020 05:08:00 PM Patient Name: Jason Nunez Visit Number: [id number] Discharge Date: ATTENTION: The Clinical Documentation Specialists (CDI) and [facility] Coding Staff appreciate your assistance in clarifying documentation. Please respond to the clarification below the line at the bottom and electronically sign. The CDI & [facility] Coding staff will review the response and follow-up if needed. Please note: Queries are made part of the Legal Health Record. If you have any questions, please contact the author of this message via ITS. Dr. Lefty Hernandez Sepsis was documented in the H&P 03/13 and the Internal Medicine Progress note 03/14 History/Risk Factors: 55-year-old male presents to the ED for reported shortness of breath confirmed COVID 19 outpatient. Medical History: DM, and HLD Clinical Indicators: VSS: B/P: 114/64; RR: 20; Temp: 98.8 F Oral; SpO2 88% room air. 03/13 H&P: Acute COVID-19 bilateral viral pneumonia with acute hypoxic respiratory failure with possible sepsis present on admission. 03/13 CXR: There is mild bilateral perihilar interstitial pneumonia that is new compared to recent exam. 03/13 LABS: Wbc 5.0; D-dimer 0.86; Na 134; Ferritin 1077.8; LDH 1087; CRP 242.3, Treatment: 03/14 Rocephin Daily Ivpb; 03/13 0.9ns 20cc/hr; 03/13 Remdesivir Ivpb d/c 03/18; 03/13 Dexamethasone po daily; Please clarify if the Sepsis was Present/active this admission Treated and resolved this admission Ruled out Other, please specify Clinically unable to determine (Last Query Form Revision: February 2019) RUDYD
--- NOTE | 2020-03-18 14:58 | P.PN ---
Subjective Progress Note Date: 03/18/20 This is a pleasant 55 years old male with past medical history of diabetes mellitus type 2 and hyperlipidemia. Presents with respiratory signs and symptoms and found to have bilateral pneumonia secondary to covert, patient also have worsening respiratory function yesterday and his oxygen requirements went up from 5 L TO 15 L/m of oxygen via high flow nasal cannula. Patient today was seen in the prone position, he feels a little better and more stable compared to yesterday. He still have coughing and is still taking anti-tussive medication. He had a fever yesterday of 100.1. CBC looks stable today. Glucose controlled. Inflammatory markers including lactate dehydrogenase and C-reactive protein and ferritin were elevated. D-dimer was mildly elevated at 0.86. Patient is currently covered with therapeutic doses of Lovenox 60 mg twice a day. Also he is on ceftriaxone, remdesvir and normal saline at 75 mL/h. Pulmonary and infectious disease on the case and their input is appreciated. 03/16/2020 Patient remains on telemetry to [facility] in which is being tapered down. Patient clinically looks better. Continue with rest of the medications patient shortness of breath is much better. 03/17/2020 Patient can use to get better patient is presently on 10 L of oxygen which is being tapered down saturating at 95% 03/18/20 Patient currently on 2 L nasal cannula saturating above 90%, clinically improving. No shortness of breath at rest. Constitutional: Denied any fatigue denied any fever. Cardio vascular: denied any chest pain, palpitations Gastrointestinal denied any nausea vomiting Pulmonary: Denied any shortness of breath cough Neurologic denied any new focal deficits Objective - Vital Signs Vital signs: Vital Signs Temp 97.7 F 03/18/20 07:02 Pulse 72 03/18/20 07:02 Resp 17 03/18/20 07:45 BP 117/71 03/18/20 07:02 Pulse Ox 92 L 03/18/20 14:21 Intake & Output 03/17/20 03/18/20 03/18/20 18:59 06:59 18:59 Intake Total 320 Output Total 700 750 Balance -700 -430 Weight 176.901 kg Intake: Intake, IV Titration 320 Amount Sodium Chloride 0.9% 1, 320 000 ml @ 20 mls/hr IV . Q24H [facility] Rx#:[id number] Output: Urine 700 750 Other: Voiding Method Toilet Toilet Urinal Urinal # Voids 3 - Exam GENERAL: The patient is alert and oriented x3, not in any acute distress. Well developed, well nourished. HEENT: Pupils are round and equally reacting to light. EOMI. No scleral icterus. No conjunctival pallor. Normocephalic, atraumatic. No pharyngeal erythema. No thyromegaly. CARDIOVASCULAR: S1 and S2 present. No murmurs, rubs, or gallops. PULMONARY: Mild expiratory wheezing with some bilateral rhonchi ABDOMEN: Soft, nontender, nondistended, normoactive bowel sounds. No palpable organomegaly. MUSCULOSKELETAL: No joint swelling or deformity. EXTREMITIES: No cyanosis, clubbing, or pedal edema. NEUROLOGICAL: Gross neurological examination did not reveal any focal deficits. SKIN: No rashes. Note: Because of COVID 19 isolation, some of the history and physical exam findings or indirect and obtained from nursing staff, and other physician e xaminations to avoid unnecessary contact with the patient. - Labs CBC & Chem 7: 03/16/20 05:59 03/16/20 05:59 Labs: Abnormal Lab Results - Last 24 Hours (Table) 03/17/20 03/17/20 03/18/20 Range/Units 16:42 20:57 07:03 POC Glucose (mg/dL) 220 H 191 H 129 H (75-99) mg/dL 03/18/20 Range/Units 11:36 POC Glucose (mg/dL) 170 H (75-99) mg/dL Microbiology - Last 24 Hours (Table) 03/18/20 00:44 Sputum Culture - Preliminary Sputum 03/13/20 15:42 Blood Culture - Preliminary Blood No Growth after 96 hours 03/14/20 15:05 Blood Culture - Preliminary Blood No Growth after 72 hours Assessment and Plan Plan: Plan: Bilateral covid pneumonia Acute hypoxic respiratory failure secondary to above obesity Type 2 diabetes mellitus Hyperlipidemia Plan: This is a pleasant 55 years old male who presents with bilateral pneumonia secondary to Covid 19. Continue with antibiotic continue with remedsvir and therapeutic dose of Lovenox, continue with gentle hydration. Oxygen requirements down to 2 L nasal cannula. Clinically patient is improving. Labs and vital signs reviewed. DVT prophylaxis: Subcutaneous Lovenox GI Prophylaxis: Pepcid Prognosis is guarded
[2020-03-18 16:56] LABS: Glucose,Whole Blood 246 mg/dL (75-99)
--- NOTE | 2020-03-18 18:24 | PN ---
PROGRESS NOTE DATE OF SERVICE: 03/18/2020 REASON FOR FOLLOW UP: Acute COVID-19 pneumonia. INTERVAL HISTORY: Patient is currently afebrile. Patient is breathing comfortably. His O2 requirement is down to 2 L. The patient denies any chest pain or shortness of breath. Minimal cough. No nausea or vomiting. No abdominal pain. No diarrhea. PHYSICAL EXAMINATION: Blood pressure 120/76, pulse of 64, temperature 97.9. He is 95% on 2 L nasal cannula. General description is a middle-aged male up in the bed in no distress. Respiratory system: Unlabored breathing, decreased intensity in breath sounds. No wheeze. Heart S1, S2. Regular rate and rhythm. Abdomen: Soft, no tenderness. LABS: No new labs have been obtained today. DIAGNOSTIC IMPRESSION AND PLAN: Patient with acute COVID-19 pneumonia in this patient who clinically responded to steroids, Lovenox, to continue and monitor clinical course closely. MMODL / IJN: [id number] /
[2020-03-18] MEDS: ATORVASTATIN 10 MG TAB PO SCH (20:12)
[2020-03-18 20:23] LABS: Glucose,Whole Blood 240 mg/dL (75-99)
[2020-03-19] MEDS: ALBUTEROL HFA INHALER INHALATION SCH ×3 (01:12→11:22)
[2020-03-19 06:35] LABS: HCT 38.4 % (39.0-53.0); HGB 12.9 gm/dL (13.0-17.5); MCH 29.6 pg (25.0-35.0); MCHC 33.5 g/dL (31.0-37.0); MCV 88.4 fL (80.0-100.0); Mean Platelet Volume 7.3; Platelet Count 481 k/uL (150-450); RBC 4.34 m/uL (4.30-5.90); RDW 14.1 % (11.5-15.5); WBC 10.9 k/uL (3.8-10.6)
[2020-03-19 07:45] LABS: Glucose,Whole Blood 138 mg/dL (75-99)
[2020-03-19 08:05] VITALS: PULSE 61
[2020-03-19] MEDS: FAMOTIDINE 20 MG TAB PO SCH (08:08)
[2020-03-19] MEDS: BENZONATATE 100 MG CAP PO SCH (08:08)
[2020-03-19] MEDS: INSULIN ASPART (NovoLOG) 100 UNIT/ML VIAL SQ SCH ×2 (08:08→12:18)
[2020-03-19] MEDS: CHOLECALCIFEROL 1,000 UNIT TAB PO SCH (08:08)
[2020-03-19] MEDS: ZINC SULFATE 220 MG CAP PO SCH (08:09)
[2020-03-19] MEDS: dexAMETHasone 2 MG TAB PO SCH (08:10)
[2020-03-19] MEDS: ENOXAPARIN 60 MG/0.6 ML SYRINGE SQ SCH (08:10)
[2020-03-19 09:17] LABS: Eosinophils # (M) 0.11 k/uL (0-0.7); Lymphocytes # (M) 2.29 k/uL (1.0-4.8); Monocytes # (M) 1.53 k/uL (0-1.0); Neutrophils # (M) 6.98 k/uL (1.3-7.7); Neutrophils % (M) 64 %; Nucleated Red Blood Cells 0 /100 WBC (0-0); Total Cells Counted 100
[2020-03-19 09:32] LABS: African American GFR (CKD) 118.2 (60.0-200.0); Anion Gap 12.7 mmol/L (4.00-12.00); BUN/Creat Ratio 27.5 Ratio (12.00-20.00); Carbon Dioxide 25.3 mmol/L (21.6-31.8)
[2020-03-19 12:04] LABS: Glucose,Whole Blood 235 mg/dL (75-99)
--- NOTE | 2020-03-19 12:10 | P.PN ---
Subjective Progress Note Date: 03/19/20 Principal diagnosis: CoVID 19 viral pneumonia 55-year-old male patient, obesity with a BMI of 40.7, diabetic, started having shortness of breath around 3 days prior to his hospital visit. The patient also started having fever and chills and generalized body aches and he ultimately went to an urgent care where the rapid covid testing was done and the patient checked positive. He was subsequently the patient was asked to come into the hospital and he presented to the emergency department where he was having increased cough and shortness of breath and he was admitted to the hospital for further care. Noted the patient was found to be hypoxic. Initially was placed on oxygen at 2 L per minute nasal cannula and over the past 24 hours his oxidation is been worse and is currently up to 15 L of oxygen by nasal cannula to maintain a saturation above 90%. He is still having low-grade fever with a temperature 100.8. He has no leukocytosis. Blood work essentially within normal limits. His LDH level is at 493. His CRP level is at 22. LFTs showed an AST of 81 and ALT of 38 with an alkaline phosphatase of 60. The UA is been showing +1 protein otherwise negative. The patient had a d-dimer of 0.86. The CAT scan of the chest was done and showed extensive peripheral patchy bilateral pulmonary infiltrates and airspace disease typical of gibbs Covid 19 infection. Based on a declining course, the patient was started on Decadron 6 mg orally once a day and the patient is also currently on remdesivir per protocol. He is receiving sulfate to 20 mg on a daily basis and addition to vitamin C and melatonin. He denies having any significant shortness of breath. His resting comfortably in bed. He is hemodynamically stable. No hemoptysis. No pleurisy. No sputum production. No other complaints otherwise for now. No nausea. No vomiting. No diarrhea. No headaches. On 03/15/2020 patient seen in follow-up on medical surgical floor, he is currently in 15 minutes of oxygen, his pulse ox is 95%, patient is self pronating in bed, he is currently living in his abdomen, tolerating it well, no worsening dyspnea, no significant cough, no chest pain, is awake and alert, oriented 3, does get short of breath with exertion, his been afebrile. Remains on empiric antibiotics, currently on IV Rocephin, he is receiving Remdesivir, he is on day 3 of treatment, he is on Lovenox 60 mg every 12 hours, Pepcid, and zinc supplementation. Denies any chest pain, no hemoptysis, no nausea vomiting or diarrhea. No headaches. No new chest x-ray today. LDH is 598, up slightly from 493 on yesterday's labs, but overall trending down since admission, CRP is trending down to 11, pro-calcitonin came back at 0.70, blood cultures have been negative, patient is covered with Rocephin for empiric antibody coverage. On 03/16/2020 patient seen in follow-up on medical surgical floor. On 15 L of oxygen per patient pulse ox is 93%, FiO2 was dropped down to 13 L, breathing is comfortable, no worsening cough or congestion, patient is afebrile, vitals been stable, patient has been successfully self-proning, he is receiving Remdesivir, he is on day 4 of treatment, patient continues on antibiotics, zinc supplement. Today's labs have been reviewed, LDH remains stable at 592, CRP is trending down On 03/17/2020 patient seen in follow-up on the general medical surgical floor, FiO2 is down to 5 L, patient is feeling better, his been afebrile, he is on day 4 of his Remdesivir treatment, he remains on oral Decadron, prophylactic doses of Lovenox, Pepcid, zinc supplement, doing well, feeling better, no nausea vomiting no diarrhea, no complaints of worsening dyspnea or chest discomfort. No acute events overnight. Today's labs have been reviewed, LDH remains relativ cesar stable, CRP is trending down. The patient is seen today 03/18/2020 in follow-up on the regular medical floor. He is currently sitting up at the bedside. Awake and alert in no acute distress. Still requiring 5 L high flow nasal cannula to maintain O2 saturations in the 90s. He is afebrile. Hemodynamically stable. Blood culture reveals no growth to date. Sputum culture pending. Blood glucose 170. This is day 5 of his Remdesivir treatment. He is continued on vitamin D, dexamethasone, Lipitor, Lovenox, Pepcid, zinc. Antibiotics in the form of ceftriaxone. The patient is seen today in over 2019 in follow-up on the regular medical floor. He is sitting up in a chair at the bedside. Awake and alert in no acute distress. Breathing quite a bit easier today compared to yesterday. Feeling nearly back to his baseline. 18 O2 saturations in the mid 90s on room air. He's afebrile. Hemodynamically stable. Blood cultures reveal no growth. Sputum culture pending. White count 10.9. Hemoglobin 10.9. Sodium 137. Potassium 4.0. Creatinine 0.8. He is continued on ceftriaxone, dexamethasone, statins, vitamin D3, Lovenox, Pepcid, zinc. Objective - Vital Signs Vital signs: Vital Signs Temp 98.1 F 03/19/20 07:00 Pulse 61 03/19/20 07:00 Resp 16 03/19/20 08:00 BP 96/61 03/19/20 07:00 Pulse Ox 95 03/19/20 09:15 Intake & Output 03/18/20 03/19/20 03/19/20 18:59 06:59 18:59 Weight 176.901 kg Other: Voiding Method Toilet Toilet Toilet Urinal Urinal Urinal # Voids 1 1 # Bowel Movements 1 - Exam GENERAL EXAM: Alert, very pleasant, 55-year-old, male patient on room air, pulse ox of 95%, comfortable in no apparent distress. HEAD: Normocephalic/atraumatic. EYES: Normal reaction of pupils, equal size. Conjunctiva pink, sclera white. NOSE: Clear with pink turbinates. THROAT: No erythema or exudates. NECK: No masses, no JVD, no thyroid enlargement, no adenopathy. CHEST: No chest wall deformity. Symmetrical expansion. LUNGS: Equal air entry with no crackles, wheeze, rhonchi or dullness. CVS: Regular rate and rhythm, normal S1 and S2, no gallops, no murmurs, no rubs ABDOMEN: Soft, nontender. No hepatosplenomegaly, normal bowel sounds, no guarding or rigidity. EXTREMITIES: No clubbing, no edema, no cyanosis, 2+ pulses and upper and lower extremities. MUSCULOSKELETAL: Muscle strength and tone normal. SPINE: No scoliosis or deformity SKIN: No rashes CENTRAL NERVOUS SYSTEM: Alert and oriented -3. No focal deficits, tone is normal in all 4 extremities. PSYCHIATRIC: Alert and oriented -3. Appropriate affect. Intact judgment and insight. - Labs CBC & Chem 7: 03/19/20 05:48 03/19/20 05:48 Labs: Abnormal Lab Results - Last 24 Hours (Table) 03/18/20 03/18/20 03/19/20 Range/Units 16:53 20:22 05:48 WBC 10.9 H (3.8-10.6) k/uL Hgb 12.9 L (13.0-17.5) gm/dL Hct 38.4 L (39.0-53.0) % Plt Count 481 H (150-450) k/uL Monocytes # (Manual) 1.53 H (0-1.0) k/uL Anion Gap (4.00-12.00) mmol/L BUN/Creatinine Ratio (12.00-20.00) Ratio Glucose (70-110) mg/dL POC Glucose (mg/dL) 246 H 240 H (75-99) mg/dL 03/19/20 03/19/20 Range/Units 05:48 07:05 WBC (3.8-10.6) k/uL Hgb (13.0-17.5) gm/dL Hct (39.0-53.0) % Plt Count (150-450) k/uL Monocytes # (Manual) (0-1.0) k/uL Anion Gap 12.70 H (4.00-12.00) mmol/L BUN/Creatinine Ratio 27.50 H (12.00-20.00) Ratio Glucose 138 H (70-110) mg/dL POC Glucose (mg/dL) 138 H (75-99) mg/dL Microbiology - Last 24 Hours (Table) 03/18/20 00:44 Gram Stain - Preliminary Sputum Sputum Culture - Preliminary 03/13/20 15:42 Blood Culture - Preliminary Blood No Growth after 120 hours 03/14/20 15:05 Blood Culture - Preliminary Blood No Growth after 96 hours Assessment and Plan Assessment: 1 acute bilateral pneumonia due to Covid 19 viral infection, initiated on Remdesivir, improved 2 acute hypoxic respiratory failure with progressive worsening in oxygenation initially the patient was requiring 15 L of oxygen by nasal cannula. Recovered. Currently on room air L 3 dyspnea secondary to above, improved 4 obesity with a BMI of 40.7 5 hypertension 6 diabetes mellitus 7 hyperlipidemia Plan: The patient was seen and evaluated by Dr. Bran Cleared for discharge from the pulmonary standpoint Remain in quarantine at home Complete course of dexamethasone for a total of 10 days Follow-up in our office in 1-2 weeks' time We will repeat a chest x-ray then I, the cosigning physician, performed a history & physical examination of the patient. Lungs sounds are clear. Maintaining good O2 saturations in the 90s on room air. I discussed the assessment and plan of care with my nurse practitioner, Nneka Blanco. I attest to the above note as dictated by her.
[2020-03-19] MEDS: SODIUM CHLORIDE 0.9% 1,000 ML IV SCH (12:19)
--- NOTE | 2020-03-19 14:07 | P.DS ---
Providers Date of admission: 03/13/20 17:08 Expected date of discharge: 03/19/20 Attending physician: Laura Knight Consults: 03/13/20 17:07 Consult Physician Urgent Consulting Provider: Lenny Dickerson Consult Reason/Comments: acute hypoxic resp failure, acute covid pna Do you want consulting provider notified?: Yes 03/13/20 19:11 Consult Physician Routine Consulting Provider: Antonio Peck Consult Reason/Comments: covid Do you want consulting provider notified?: Yes Primary care physician: [facility] Course: Progress Note Date: 03/18/20 This is a pleasant 55 years old male with past medical history of diabetes mellitus type 2 and hyperlipidemia. Presents with respiratory signs and symptoms and found to have bilateral pneumonia secondary to covert, patient also have worsening respiratory function yesterday and his oxygen requirements went up from 5 L TO 15 L/m of oxygen via high flow nasal cannula. Patient today was seen in the prone position, he feels a little better and more stable compared to yesterday. He still have coughing and is still taking anti-tussive medication. He had a fever yesterday of 100.1. CBC looks stable today. Glucose controlled. Inflammatory markers including lactate dehydrogenase and C-reactive protein and ferritin were elevated. D-dimer was mildly elevated at 0.86. Patient is currently covered with therapeutic doses of Lovenox 60 mg twice a day. Also he is on ceftriaxone, remdesvir and normal saline at 75 mL/h. Pulmonary and infectious disease on the case and their input is appreciated. 03/16/2020 Patient remains on telemetry to [facility] in which is being tapered down. Patient clinically looks better. Continue with rest of the medications patient shortness of breath is much better. 03/17/2020 Patient can use to get better patient is presently on 10 L of oxygen which is being tapered down saturating at 95% 03/18/20 Patient currently on 2 L nasal cannula saturating above 90%, clinically improv ing. No shortness of breath at rest. 03/19/20 Patient has been weaned off of oxygen, is on room air saturating above 90%. Reports feeling much better today, no fevers. No shortness of breath. Patient would like to be discharged home today. ROS: Constitutional Patient would like to be discharged home today.: Denied any fatigue denied any fever. Cardio vascular: denied any chest pain, palpitations Gastrointestinal denied any nausea vomiting Pulmonary: Denied any shortness of breath cough Neurologic denied any new focal deficits EXAM GENERAL: The patient is alert and oriented x3, not in any acute distress. Well developed, well nourished. HEENT: Pupils are round and equally reacting to light. EOMI. No scleral icterus. No conjunctival pallor. Normocephalic, atraumatic. No pharyngeal erythema. No thyromegaly. CARDIOVASCULAR: S1 and S2 present. No murmurs, rubs, or gallops. PULMONARY: Good air entry bilaterally, no wheezes or rhonchi., Rales ABDOMEN: Soft, nontender, nondistended, normoactive bowel sounds. No palpable organomegaly. MUSCULOSKELETAL: No joint swelling or deformity. EXTREMITIES: No cyanosis, clubbing, or pedal edema. NEUROLOGICAL: Gross neurological examination did not reveal any focal deficits. SKIN: No rashes. PLAN: Bilateral covid pneumonia Acute hypoxic respiratory failure secondary to above, improved obesity Type 2 diabetes mellitus Hyperlipidemia Patient has been weaned off of oxygen, is on room air saturating about 90%. Clinically patient is improving and would like to go home. He'll be discharged home, continue course of Decadron for 4 days along with oral zinc. Continue on home medications other than Hydrochlorothiazide has been discontinued to avoid hypotension. Follow-up with PCP in one week. Patient Condition at Discharge: Serious Plan - Discharge Summary New Discharge Prescriptions: New dexAMETHasone [Hexadrol] 4 mg PO DAILY #4 tab Zinc Sulfate [Orazinc] 220 mg PO DAILY #10 cap Famotidine [Pepcid] 20 mg PO BID #30 tab Continue Ibuprofen [Motrin Ib] 400 mg PO Q4H PRN PRN Reason: Fever And/ Or Pain Acetaminophen [Tylenol 8 Hour] 1,300 mg PO Q4H PRN PRN Reason: Fever And/ Or Pain Cholecalciferol [Vitamin D3 (25 Mcg = 1000 Iu)] 1,000 unit PO DAILY Benzonatate [Tessalon Perles] 100 mg PO TID metFORMIN HCL 850 mg PO BID Atorvastatin [Lipitor] 10 mg PO HS Guaifen/Phenyleph/Acetaminophn [Mucinex Sinus-Max Severe Cplt] 1 tab PO Q4H PRN PRN Reason: Cold Symptoms Discontinued hydroCHLOROthiazide 50 mg PO DAILY Discharge Medication List Acetaminophen [Tylenol 8 Hour] 1,300 mg PO Q4H PRN 03/13/20 [History] Atorvastatin [Lipitor] 10 mg PO HS 03/13/20 [History] Benzonatate [Tessalon Perles] 100 mg PO TID 03/13/20 [History] Cholecalciferol [Vitamin D3 (25 Mcg = 1000 Iu)] 1,000 unit PO DAILY 03/13/20 [History] Guaifen/Phenyleph/Acetaminophn [Mucinex Sinus-Max Severe Cplt] 1 tab PO Q4H PRN 03/13/20 [History] Ibuprofen [Motrin Ib] 400 mg PO Q4H PRN 03/13/20 [History] metFORMIN HCL 850 mg PO BID 03/13/20 [History] Famotidine [Pepcid] 20 mg PO BID #30 tab 03/19/20 [Rx] Zinc Sulfate [Orazinc] 220 mg PO DAILY #10 cap 03/19/20 [Rx] dexAMETHasone [Hexadrol] 4 mg PO DAILY #4 tab 03/19/20 [Rx] Follow up Appointment(s)/Referral(s): Facundo Brice DO [Primary Care Provider] - 1 Week Patient Instructions/Handouts: Community Acquired Pneumonia (DC) Activity/Diet/Wound Care/Special Instructions: [employer] - [phone] for new glucometer - they will mail the patient an agreement form. Please sign and send back to [employer] then they will send you a glucometer and supplies. Please contact [employer] with any questions regarding your glucometer. Discharge Disposition: HOME SELF-CARE
[2020-03-19 15:00] VITALS: BP 123/76; RESP 20; TEMP 97.6
--- NOTE | 2020-03-19 15:13 | PN ---
PROGRESS NOTE DATE OF SERVICE: 03/19/2020 REASON FOR FOLLOWUP: Acute COVID-19 pneumonia. INTERVAL HISTORY: The patient is currently afebrile. The patient overall is feeling better. Breathing comfortably. The patient is currently off oxygen, saturating around 90-92%. Denies any chest pain, no nausea, no vomiting, no abdominal pain or diarrhea. PHYSICAL EXAMINATION: Blood pressure at 196/61 with a pulse of 71, temperature 98.1, he is 95% on room air. General description is a middle-aged male up in the bed in no distress. Respiratory system: Unlabored breathing, decreased breath sounds. No wheeze. Heart S1, S2. Regular rate and rhythm. Abdomen is soft, no tenderness. LABS: Hemoglobin is 12, white count 10.9, creatinine 0.8. Sputum pending. IMPRESSION/PLAN: Patient with acute COVID-19 pneumonia. Patient clinically responded to Remdesivir, which the patient has completed. Will get a short course of dexamethasone and and close outpatient followup. MMODL / IJN: [id number] /
[2020-03-20] MEDS ORDERED: dexAMETHasone 4 MG TAB PO SCH (09:00)
--- NOTE | 2020-03-21 07:49 | CDI ---
Documentation Clarification Form Date: 03/18/2020 01:51:26 PM From: Nilda Solis RN CCDS Admit Date: 03/13/2020 05:08:00 PM Patient Name: Jason Nunez Visit Number: [id number] Discharge Date: ATTENTION: The Clinical Documentation Specialists (CDI) and [facility] Coding Staff appreciate your assistance in clarifying documentation. Please respond to the clarification below the line at the bottom and electronically sign. The CDI & [facility] Coding staff will review the response and follow-up if needed. Please note: Queries are made part of the Legal Health Record. If you have any questions, please contact the author of this message via ITS. Dr. Lefty Hernandez Sepsis was documented in the H&P 03/13 and the Internal Medicine Progress note 03/14 History/Risk Factors: 55-year-old male presents to the ED for reported shortness of breath confirmed COVID 19 outpatient. Medical History: DM, and HLD Clinical Indicators: VSS: B/P: 114/64; RR: 20; Temp: 98.8 F Oral; SpO2 88% room air. 03/13 H&P: Acute COVID-19 bilateral viral pneumonia with acute hypoxic respiratory failure with possible sepsis present on admission. 03/13 CXR: There is mild bilateral perihilar interstitial pneumonia that is new compared to recent exam. 03/13 LABS: Wbc 5.0; D-dimer 0.86; Na 134; Ferritin 1077.8; LDH 1087; CRP 242.3, Treatment: 03/14 Rocephin Daily Ivpb; 03/13 0.9ns 20cc/hr; 03/13 Remdesivir Ivpb d/c 03/18; 03/13 Dexamethasone po daily; Please clarify if the Sepsis was Present/active this admission Treated and resolved this admission Ruled out Other, please specify Clinically unable to determine (Last Query Form Revision: February 2019) This query will not be answered as if it's dictated an H&P that means it's present on admission. Do not query me again . RUDYD
== END 2020-03-19 16:42 | disposition home or self-care (01) | DRG 871 ==
LOC: EC 14:59 → 4SSUR 17:08
PROVIDERS: ADMIT Hospitalist; ATTEND Hospitalist
DX: A41.89 Other specified sepsis (principal); U07.1 COVID-19; J96.01 Acute respiratory failure with hypoxia; J12.89 Other viral pneumonia; Z68.42 Body mass index [BMI] 45.0-49.9, adult; E87.1 Hypo-osmolality and hyponatremia; E66.01 Morbid (severe) obesity due to excess calories; E78.5 Hyperlipidemia, unspecified; D72.810 Lymphocytopenia; E11.9 Type 2 diabetes mellitus without complications; M19.90 Unspecified osteoarthritis, unspecified site; E87.6 Hypokalemia; I10 Essential (primary) hypertension; Z79.84 Long term (current) use of oral hypoglycemic drugs; Z79.01 Long term (current) use of anticoagulants; Z79.899 Other long term (current) drug therapy; Z90.89 Acquired absence of other organs; Z98.890 Other specified postprocedural states; Z80.9 Family history of malignant neoplasm, unspecified; Z87.891 Personal history of nicotine dependence
CPT/HCPCS: 36415; 71045; 71275; 80048; 80053; 80061; 81001; 82728; 83036; 83605; 83615; 83735; 84145; 85025; 85379; 85610; 85730; 86140; 87040; 87070; 87205; 93005; 94640; 94760; 99285

== ENCOUNTER 2022-03-02 08:37 | Day surgery (SDC) | payer BC ==
[2022-03-01 10:32] VITALS: BMI 48.7
[~2022-03-02 08:37] MED LIST: LACTATED RINGERS 1,000 ML IV SCH; LIDOCAINE 1% (10MG/ML) FOR IV START INTRADERMA PRN
[2022-03-02 09:09] VITALS: RESP 16; TEMP 97.1
[2022-03-02 09:17] LABS: Glucose,Whole Blood 117 mg/dL (70-110)
[2022-03-02] MEDS ORDERED: MIDAZOLAM 2 MG/2 ML VIAL ONE (10:11)
[2022-03-02] MEDS ORDERED: PROPOFOL 10 MG/ML 20 ML VIAL IV ONE (10:11)
[2022-03-02] MEDS ORDERED: fentaNYL (PF) 50 MCG/ML 2 ML AMP ONE (10:11)
--- NOTE | 2022-03-02 10:30 | P.PCN ---
Date of Procedure: 03/02/22 Procedure(s) Performed: BRIEF HISTORY: Patient is a 57-year-old pleasant white male scheduled for an elective colonoscopy as a part of screening for colorectal neoplasia. PROCEDURE PERFORMED: Colonoscopy. PREOPERATIVE DIAGNOSIS: Screening for colon cancer. IV sedation per Anesthesia. PROCEDURE: After informed consent was obtained, the patient, was brought into the endoscopy unit. IV sedation was administered by Anesthesia under continuous monitoring. Digital rectal examination was normal. Initially the Olympus CF-160 flexible video colonoscope was then inserted in the rectum, gradually advanced into the cecum without any difficulty. Careful examination was performed as the scope was gradually being withdrawn. Ileocecal valve and the appendiceal orifice were visualized and appeared normal. Prep was excellent. Mucosa of the cecum, ascending colon, transverse colon, descending colon, sigmoid colon, and rectum appeared normal. Retroflexion was performed in the rectum and no lesions were seen. The patient tolerated the procedure well. IMPRESSION: Normal-appearing colon from rectum to cecum with no evidence of colorectal neoplasia . RECOMMENDATIONS: Findings of this examination were discussed with the patient as his family. He was advised to have a repeat screening colonoscopy in .
[2022-03-02 10:42] VITALS: PULSE 75
[2022-03-02 10:55] VITALS: BP 122/86
== END 2022-03-02 11:08 | disposition home or self-care (01) ==
LOC: ORWHC2ENDO 08:37
PROVIDERS: ATTEND Internal Medicine Gastroenterology
DX: Z12.11 Encounter for screening for malignant neoplasm of colon (principal); E78.5 Hyperlipidemia, unspecified; E11.9 Type 2 diabetes mellitus without complications; Z87.891 Personal history of nicotine dependence; E66.9 Obesity, unspecified; Z68.42 Body mass index [BMI] 45.0-49.9, adult; Z79.84 Long term (current) use of oral hypoglycemic drugs; Z79.899 Other long term (current) drug therapy; Z91.030 Bee allergy status
CPT/HCPCS: J2250; J3010; J2704; G0121; 45378